=== PATIENT | male | born 1950 | race African-American/Black ===

== ENCOUNTER 2016-05-14 09:47 | Inpatient (IN) | payer MEDICARE, MEDICAID ==
[~2016-05-14] VITALS: Ht 182.9 cm; Wt 74.8 kg
[~2016-05-14 09:47] MED LIST: NKM
[2016-05-14 10:00] VITALS: BP 131/78
[2016-05-14] MEDS ORDERED: Loperamide 2mg cap ORAL ONE (10:00)
[2016-05-14] MEDS ORDERED: Mylanta II UD 30ml ORAL ONE (10:00)
[2016-05-14 10:12] LABS: BASOPHILS % (AUTO) 0.2 % (0.0-2.0); EOSINOPHILS % (AUTO) 0.1 % (0.0-3.0); LYMPHOCYTES % (AUTO) 9.7 % (20.0-45.0); MEAN CORPUSCULAR HEMOGLOBIN 30.3 PG (27.0-31.0); MEAN CORPUSCULAR HGB CONC 32.7 G/DL (32.0-36.0); MEAN CORPUSCULAR VOLUME 93 FL (80-99); MEAN PLATELET VOLUME 5.4 FL (6.5-10.1); MONOCYTES % (AUTO) 7.4 % (1.0-10.0); NEUTROPHILS % (AUTO) 82.7 % (45.0-75.0); PLATELET COUNT 340 K/UL (150-450); RED BLOOD COUNT 3.59 M/UL (4.70-6.10); RED CELL DISTRIBUTION WIDTH 12.8 % (11.6-14.8); WHITE BLOOD COUNT 11.5 K/UL (4.8-10.8)
--- NOTE | 2016-05-14 10:16 | Emergency Room Report ---
History of Present Illness General Chief Complaint: Abdominal Pain Source: Patient, Medical Record, EMS Present Illness HPI Patient is a 65-year-old male brought in by ambulance after increased left lower quadrant pain. Patient reported having increased diarrhea for the past 2 weeks. Patient prior history of gastric bypass surgery. Patient had been seen one day ago at [facility] [place]. He reported having some episodes of vomiting. He denied hematemesis or bloody stool. The diarrhea described as watery nature associated with some abdominal cramping.Patient had prior history of hypertension as well as diabetes.Patient states he is normally followed at [facility] Allergies: Coded Allergies: No Known Allergies (Unverified , 05/14/16) Patient History Past Medical History: see triage record Reviewed Nursing Documentation: PMH: Agreed, PSxH: Agreed Review of Systems All Other Systems: negative except mentioned in HPI Physical Exam Vital Signs Date Time Temp Pulse Resp B/P Pulse Ox O2 Delivery O2 Flow Rate FiO2 05/14/16 09:40 97.5 76 16 122/79 96 Room Air General Appearance: alert, GCS 15, non-toxic, thin, Chronically Ill Head: normocephalic Eyes: bilateral eye PERRL ENT: normal pharynx Neck: full range of motion, supple Respiratory: lungs clear, normal breath sounds, no rhonchi Cardiovascular #1: normal peripheral pulses, regular rate, rhythm, no edema Gastrointestinal: normal bowel sounds, non tender, soft, no mass Musculoskeletal: back normal, digits/nails normal, other - deformity to right ankle and left ankle chronic per patient Neurologic: alert, oriented x3, responsive, 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 Differential diagnoses included ischemic bowel, appendicitis, perforated viscus, abdominal aortic aneurysm, inferior myocardial infarction, viral gastroenteritis Because of complexity of patient's case laboratory testing and imaging studies were ordered. 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 Patient was noted to have evidence of hypokalemia on laboratory testing. EKG interpreted by me showed normal sinus rhythm with a first-degree AV block rate of 67 with occasional PVCs there were no acute ST or T wave changes noted the QT was prolonged at 486. The patient was given IV pain medications and IV fluids he was given oral potassium. The patient also had an elevated lipase consistent with pancreatitis. The patient's old records from [facility] were reviewed and patient was noted to have prior history of substance abuse as well as alcohol abuse. The patient will be admitted to the hospital due to his comorbidities. Dr. Saeed was contacted for inpatient management. Labs Test 05/14/16 09:50 White Blood Count 11.5 K/UL (4.8-10.8) Red Blood Count 3.59 M/UL (4.70-6.10) Hemoglobin 10.9 G/DL (14.2-18.0) Hematocrit 33.3 % (42.0-52.0) Mean Corpuscular Volume 93 FL (80-99) Mean Corpuscular Hemoglobin 30.3 PG (27.0-31.0) Mean Corpuscular Hemoglobin Concent 32.7 G/DL (32.0-36.0) Red Cell Distribution Width 12.8 % (11.6-14.8) Platelet Count 340 K/UL (150-450) Mean Platelet Volume 5.4 FL (6.5-10.1) Neutrophils (%) (Auto) 82.7 % (45.0-75.0) Lymphocytes (%) (Auto) 9.7 % (20.0-45.0) Monocytes (%) (Auto) 7.4 % (1.0-10.0) Eosinophils (%) (Auto) 0.1 % (0.0-3.0) Basophils (%) (Auto) 0.2 % (0.0-2.0) Sodium Level 139 mEQ/L (135-145) Potassium Level 2.8 mEQ/L (3.4-4.9) Chloride Level 99 mEQ/L (98-107) Carbon Dioxide Level 23 mEQ/L (20-30) Anion Gap 17 (5-15) Blood Urea Nitrogen 10 mg/dL (7-23) Creatinine 1.0 mg/dL (0.7-1.2) Estimat Glomerular Filtration Rate > 60 mL/min (>60) Glucose Level 79 mg/dL (74-106) Calcium Level 8.9 mg/dL (8.6-10.2) Total Bilirubin 0.3 mg/dL (0.0-1.2) Aspartate Amino Transf (AST/SGOT) 33 U/L (5-40) Alanine Aminotransferase (ALT/SGPT) 14 U/L (3-41) Alkaline Phosphatase 86 U/L (40-129) Troponin I < 0.30 ng/mL (<=0.30) Total Protein 8.0 g/dL (6.6-8.7) Albumin 3.4 g/dL (3.5-5.2) Globulin 4.6 g/dL Albumin/Globulin Ratio 0.7 (1.0-2.7) Lipase 313 U/L (< 60) Rhythm Strip Diag. Results EP Interpretation: yes Rhythm: NSR, no ectopy, other - occasional pvc Last Vital Signs Date Time Temp Pulse Resp B/P Pulse Ox O2 Delivery O2 Flow Rate FiO2 05/14/16 09:40 97.5 76 16 122/79 96 Room Air Status: unchanged Disposition: ADMITTED INPATIENT Condition: Serious Isiah Browning May 14, 2016 10:16
[2016-05-14] MEDS ORDERED: Tubing IV Cassette IV ONE (10:24)
[2016-05-14 10:25] LABS: TROPONIN I < 0.30 ng/mL (<=0.30)
[2016-05-14 10:28] LABS: ALANINE AMINOTRANSFERASE 14 U/L (3-41); ALBUMIN/GLOBULIN RATIO 0.7 (1.0-2.7); ASPARTATE AMINO TRANSFERASE 33 U/L (5-40); CALCIUM 8.9 mg/dL (8.6-10.2); CARBON DIOXIDE 23 mEQ/L (20-30); CHLORIDE 99 mEQ/L (98-107); GLOMERULAR FILTRATION RATE > 60 mL/min (>60); HEMOLYSIS 1; SODIUM 139 mEQ/L (135-145)
[2016-05-14 10:33] LABS: ANION GAP 17 (5-15)
[2016-05-14 10:34] LABS: LIPASE 313 U/L (< 60); POTASSIUM 2.8 mEQ/L (3.4-4.9)
[2016-05-14 12:00] VITALS: BP 120/79
[2016-05-14] MEDS ORDERED: Morphine Sulfate 4mg/ml Inj IVP ONE (12:15)
[2016-05-14 12:56] VITALS: BP 132/84
[2016-05-14] MEDS ORDERED: Thiamine 100mg tab ORAL ONE (13:30)
[2016-05-14 14:29] LABS: APPEARANCE,URINE CLEAR; KETONES,URINE NEGATIVE (NEGATIVE); LEUKOCYTE ESTERASE ,URINE 1+ (NEGATIVE); NITRITE,URINE NEGATIVE (NEGATIVE); PH,URINE 6 (4.5-8.0); PROTEIN,URINE 2+ (NEGATIVE); UROBILINOGEN,URINE NORMAL MG/DL (0.0-1.0)
[2016-05-14 14:38] LABS: BACTERIA,URINE FEW /HPF; SQUAMOUS EPITHELIAL CELL,UR OCCASIONAL /LPF (NONE/OCC)
[2016-05-14 14:45] VITALS: BP 119/87
[2016-05-14 16:00] VITALS: BP 113/83
[2016-05-14 20:00] VITALS: BP 118/69
[2016-05-14] MEDS: Heparin 5000 units/ml inj SUBQ SCH (20:19)
[2016-05-14] MEDS: Morphine Sulfate 2mg/ml Inj IV PRN (20:28)
--- NOTE | 2016-05-14 21:44 | Consultation ---
Consult Note Consult Note ID [id number] Assessment/Plan A: Pancreatitis Low grade fever Diarrhea x 2 wk Ehhoh abuse Depression LBP P: Start pt on IV Merrem and oral Flagyl Monitor CBC Monitor BMP Monitor Amyl and Lipase Monitor Cultures ( Bl, Stool ) Stool Cryptos, Fat, WBC, C Diff CT of Abd HIV MONTRELL CORREA M.D. May 14, 2016 21:44
[2016-05-14] MEDS: metroNIDAZOLE 500mg tab ORAL SCH (22:26)
[2016-05-15] VITALS: BP 113/68
[2016-05-15] MEDS ORDERED: Meropenem 1gm vial ONE (00:10)
--- NOTE | 2016-05-15 00:47 | Consultation ---
DATE OF CONSULTATION: 05/14/2016 GASTROENTEROLOGY CONSULTATION CHIEF COMPLAINT: Upper abdominal pain. HISTORY OF PRESENT ILLNESS: This is a 65-year-old male with past medical history of alcoholism, who presented to the hospital complaining of epigastric abdominal pain with diarrhea for about nine days. The patient is a heavy drinker. He drinks beer and whiskey everyday. PAST MEDICAL HISTORY: 1. History of gastric bypass surgery by over 20 years ago. 2. History of chronic back pain, on back surgery. 3. Alcoholism. PAST SURGICAL HISTORY: History of gastric bypass and also history of back surgeries. MEDICATIONS: Please medication reconciliation list. ALLERGIES: No known drug allergy. SOCIAL HISTORY: He smoked half-a-pack of cigarettes for many years. He also smokes marijuana. Drinks alcohol as above. No cocaine use or other drugs. FAMILY HISTORY: Noncontributory. REVIEW OF SYSTEMS: A 10-point review of systems was performed and pertinent positives in history of present illness. PHYSICAL EXAMINATION: GENERAL: A well-developed male in no acute distress. VITAL SIGNS: Temperature 97.5 degrees, pulse is 72, respirations 18, and blood pressure 120/79. HEENT: Normocephalic and atraumatic. Sclerae anicteric. NECK: Supple. No evidence of lymphadenopathy. CARDIOVASCULAR: Regular rhythm. Plus S1 and S2. No obvious murmur. LUNGS: Clear breath sounds bilaterally. ABDOMEN: Positive bowel sounds. Soft. There is tenderness to palpation in the epigastric area. No rebound. No guarding. No peritoneal sign. EXTREMITIES: No cyanosis. No clubbing. No edema. LABORATORY DATA: White count 11.5, hemoglobin 10.9, hematocrit 33, and platelet count of 340,000. Sodium 139 and potassium 2.8. Liver function grossly normal. Lipase is elevated at 313. ASSESSMENT: This is a 65-year-old male with most probably alcoholic pancreatitis and diarrhea. PLAN: IV fluids for hydration. Pain control. Start the patient on thiamine, folate, and multivitamin for alcoholism. Repeat amylase and lipase tomorrow. The patient is very hungry and he does not have a significantly elevated white count and no significant tachycardia and no hemo concentration, so we are going to start him on clear liquid diet. We are going to order an abdominal ultrasound, rule out gallstone. The patient was educated about the consequence of drinking every day and possibility of chronic pancreatitis and even liver disease and he was encouraged to stop. The patient also has normocytic anemia. Plan to do an anemia workup including stool for occult blood, iron panel, and CEA. The patient never had any endoscopy and colonoscopy, so at one point he will need to be scoped. We will wait until his pancreatitis improved. I want to thank, Dr. Saeed, for this kind referral. Tavo Young M.D. DR: RAMOS JOB#: [id number] CC: Afshin Saeed M.D.
--- NOTE | 2016-05-15 02:38 | Consultation ---
DATE OF CONSULTATION: REASON FOR EVALUATION: Diarrhea, pancreatitis, and management. HISTORY OF PRESENT ILLNESS: The patient is a 65-year-old old male who came to the hospital because of abdominal pain. The patient has history of diarrhea x2 weeks. The patient admits drinking alcohol in excess. The patient . Also the patient is a smoker. At time of admission, the patient was found to have low-grade fever and mild leukocytosis and increased lipase. The patient has been admitted here for further evaluation. Infectious Disease consultation has been requested regarding for evaluation of the need for antibiotic treatment. PAST MEDICAL HISTORY: 1. History of hypertension. 2. History of gastric bypass. 3. History of back surgery. 4. Diabetes. 5. Depression. 6. Alcohol abuse. 7. History of marijuana abuse. 8. The patient is a smoker. FAMILY HISTORY: Noncontributory. SOCIAL HISTORY: As mentioned above. ALLERGIES: No known drug allergies. MEDICATIONS: Currently off of antibiotics. PHYSICAL EXAMINATION: VITAL SIGNS: Temperature 100, blood pressure 118/59, pulse 68, and respiratory rate 18. HEENT: Mild pale conjunctivae. No icterus. CHEST: Coarse breathing sounds. HEART: S1-S2. ABDOMEN: Soft. The patient has epigastric tenderness. EXTREMITIES: No cyanosis. NEUROLOGIC: Awake and alert. LABORATORY DATA: White count 11, hemoglobin 10.9, and platelets 340,000. UA unremarkable. BUN 10 and creatinine 1. ALT is unremarkable at 86. ASSESSMENT: The patient is a 65-year-old male, who came to the hospital. The patient has history of chronic diarrhea x2 weeks. It is important to rule out infectious etiologies. Also this could be due to chronic pancreatitis and mal absorption. The patient appears to be due to pancreatitis. The patient has history of alcohol abuse. Low-grade fever also could be due to the patient's pancreatitis. The patient would benefit from broad-spectrum antibiotics for pancreatitis and also further information from cultures and further lab workup. PLAN: 1. We will start the patient on meropenem and Flagyl. 2. Monitor CBC. 3. Monitor BMP. 4. Monitor lipase and amylase. 5. Monitor cultures (blood and stool). 6. Stool for white blood cells, C. diff, and fat. 7. CT scan of the abdomen for evaluation of the patient's pancreatitis. 8. The patient further recommendation. Thank you, Dr. Saeed this patient. I will follow the patient with you. Alvino Thompson M.D. DR: Nilton JOB#: [id number] CC:
[2016-05-15 04:00] VITALS: BP 101/54
[2016-05-15 05:52] LABS: BASOPHILS % (AUTO) 0.6 % (0.0-2.0); EOSINOPHILS % (AUTO) 0.3 % (0.0-3.0); LYMPHOCYTES % (AUTO) 21.4 % (20.0-45.0); MEAN CORPUSCULAR HGB CONC 31.9 G/DL (32.0-36.0); MEAN CORPUSCULAR VOLUME 94 FL (80-99); MEAN PLATELET VOLUME 5.2 FL (6.5-10.1); MONOCYTES % (AUTO) 7.6 % (1.0-10.0); NEUTROPHILS % (AUTO) 70.1 % (45.0-75.0); PLATELET COUNT 298 K/UL (150-450); RED BLOOD COUNT 3.21 M/UL (4.70-6.10); RED CELL DISTRIBUTION WIDTH 12.4 % (11.6-14.8)
[2016-05-15] MEDS: metroNIDAZOLE 500mg tab ORAL SCH ×3 (06:10→21:51)
[2016-05-15 06:39] LABS: ALANINE AMINOTRANSFERASE 9 U/L (3-41); ALBUMIN/GLOBULIN RATIO 0.5 (1.0-2.7); AMYLASE 128 U/L (10-110); ANION GAP 14 (5-15); ASPARTATE AMINO TRANSFERASE 29 U/L (5-40); CALCIUM 8.1 mg/dL (8.6-10.2); CARBON DIOXIDE 22 mEQ/L (20-30); CHLORIDE 101 mEQ/L (98-107); CREATININE 0.8 mg/dL (0.7-1.2); GLOMERULAR FILTRATION RATE > 60 mL/min (>60); LIPASE 72 U/L (< 60); POTASSIUM 3.5 mEQ/L (3.4-4.9); SODIUM 137 mEQ/L (135-145); TOTAL PROTEIN 6.6 g/dL (6.6-8.7)
[2016-05-15 07:07] LABS: CHOLESTEROL/HDL RATIO 2.2 (3.3-4.4)
[2016-05-15 07:21] LABS: THYROID STIMULATING HORMONE 1.03 uIU/mL (0.300-4.500)
[2016-05-15 07:39] LABS: HEMOLYSIS 109; IRON 45 ug/dL (59-158); TOTAL IRON BINDING CAPACITY 206 ug/dL (250-400)
[2016-05-15 07:52] LABS: HEMOGLOBIN A1C 5.8 % (< 6.0)
[2016-05-15 08:00] VITALS: BP 119/58
[2016-05-15] MEDS: Heparin 5000 units/ml inj SUBQ SCH ×2 (09:23→22:01)
--- NOTE | 2016-05-15 10:02 | History & Physical ---
History and Physical History & Physicial patient is seen and examined. Dictation completed Afshin Saeed MD May 15, 2016 10:02
--- NOTE | 2016-05-15 10:05 | General Progress Note ---
Assessment/Plan Status: stable Assessment/Plan 1- Sepsis 2- Acute pancreatitis 3- PSA 4- Imbalance 5- GIB 6- GI-DVT prophylaxia Plan: GI- ID services are consulted. Agree with current management Subjective ROS Limited/Unobtainable: No Constitutional: Reports: no symptoms HEENT: Reports: no symptoms Cardiovascular: Reports: no symptoms Respiratory: Reports: no symptoms Allergies: Coded Allergies: No Known Allergies (Unverified , 05/14/16) Objective Last 24 Hour Vital Signs Date Time Temp Pulse Resp B/P Pulse Ox O2 Delivery O2 Flow Rate FiO2 05/15/16 08:00 97.0 54 18 119/58 100 Room Air 05/15/16 04:00 69 05/15/16 04:00 97.9 59 18 101/54 100 Room Air 05/15/16 00:00 98.4 60 18 113/68 98 Room Air 05/15/16 00:00 59 05/14/16 20:00 68 05/14/16 20:00 100.0 69 14 118/69 99 Room Air 05/14/16 16:00 73 05/14/16 16:00 96.3 67 13 113/83 100 Room Air 05/14/16 14:45 97.7 80 20 119/87 99 Room Air 05/14/16 13:50 97.6 77 17 132/84 100 Room Air 05/14/16 13:15 97.6 05/14/16 12:56 77 17 132/84 100 Room Air 05/14/16 12:00 72 18 120/79 100 Room Air Intake and Output 05/14/16 05/15/16 19:00 07:00 Intake Total 600 ml 340 ml Output Total 500 ml 300 ml Balance 100 ml 40 ml Intake Oral 240 ml IV Total 600 ml 100 ml Output Urine Total 300 ml Stool Total 500 ml # Voids 2 Laboratory Tests 05/14/16 10:15: Stool Occult Blood Positive 05/14/16 14:00: Urine Color Pale yellow, Urine Appearance Clear, Urine pH 6, Urine Specific Thomson 1.010, Urine Protein 2+H, Urine Glucose (UA) Negative, Urine Ketones Negative, Urine Occult Blood 2+H, Urine Nitrite Negative, Urine Bilirubin Negative, Urine Urobilinogen Normal, Urine Leukocyte Esterase 1+H, Urine RBC 2- 4H, Urine WBC 2-4, Urine Squamous Epithelial Cells Occasional, Urine Bacteria Few, Urine Opiates Screen PositiveH, Urine Barbiturates Screen Negative, Phencyclidine (PCP) Screen Negative, Urine Amphetamines Screen Negative, Urine Benzodiazepines Screen Negative, Urine Cocaine Screen PositiveH, Urine Marijuana (THC) Screen Negative 05/15/16 03:25: White Blood Count 8.0, Red Blood Count 3.21L, Hemoglobin 9.7L, Hematocrit 30.3L , Mean Corpuscular Volume 94, Mean Corpuscular Hemoglobin 30.0, Mean Corpuscular Hemoglobin Concent 31.9L, Red Cell Distribution Width 12.4, Platelet Count 298, Mean Platelet Volume 5.2L, Neutrophils (%) (Auto) 70.1, Lymphocytes (%) (Auto) 21.4, Monocytes (%) (Auto) 7.6, Eosinophils (%) (Auto) 0.3, Basophils (%) (Auto) 0.6, Sodium Level 137, Potassium Level 3.5, Chloride Level 101, Carbon Dioxide Level 22, Anion Gap 14, Blood Urea Nitrogen 6L, Creatinine 0.8, Estimat Glomerular Filtration Rate > 60, Glucose Level 68L, Hemoglobin A1c 5.8, Calcium Level 8.1L, Iron Level 45L, Total Iron Binding Capacity 206L, Percent Iron Saturation 22, Unsaturated Iron Binding 161, Total Bilirubin 0.3, Aspartate Amino Transf (AST/SGOT) 29, Alanine Aminotransferase ( ALT/SGPT) 9, Alkaline Phosphatase 86, Total Protein 6.6, Albumin 2.4L, Globulin 4.2, Albumin/Globulin Ratio 0.5L, Triglycerides Level 55, Cholesterol Level 83, LDL Cholesterol 34L, HDL Cholesterol 38, Cholesterol/HDL Ratio 2.2L, Amylase Level 128H, Lipase 72H, Carcinoembryonic Antigen 4.8H, Thyroid Stimulating Hormone (TSH) 1.030 Height (Feet): 6 Height (Inches): 1.00 Weight (Pounds): 165 General Appearance: no apparent distress EENT: PERRL/EOMI Neck: supple Cardiovascular: normal rate Respiratory/Chest: lungs clear Abdomen: guarding Extremities: non-tender Neurologic: patient services representative II-XII grossly normal Afshin Saeed MD May 15, 2016 10:05
--- NOTE | 2016-05-15 10:19 | Diagnostic Imaging Report ---
Indication:Abdominal pain Technique: Grayscale and duplex Doppler imaging of the abdomen performed. Comparison: None Findings: The liver, demonstrated part of the pancreas, gallbladder, aorta and IVC, both kidneys appear unremarkable. Spleen is not all seen. Portions of anatomy are not well seen. There is no biliary ductal dilatation identified. Doppler evaluation of the main portal vein shows patency. There is no ascites. No hydronephrosis seen. Impression: No acute findings. Limited evaluation.
[2016-05-15 12:00] VITALS: BP 106/67
--- NOTE | 2016-05-15 13:44 | Infectious Diseases Prog Note ---
Assessment/Plan Assessment/Plan ASSESSMENT: 65 y/o male with: Acute pancreatitis, m/l EtOH - improved, tolerating CLD US: No acute findings. Limited evaluation. Diarrhea x 2 wk - resolved, no BM x2d SIRS SP Leukocytosis - resolved Low grade fever x1 - resolved EtOH abuse Negative HIV NKDA Full Code PLAN: continue IV Merrem, PO Flagyl d# 2 for now. Will not rq ABX at discharge f/u cultures, stool studies f/u CT A/P Monitor CBC, temperatures Monitor BMP EtOH cessation advance diet as tolerated Subjective Allergies: Coded Allergies: No Known Allergies (Unverified , 05/14/16) Subjective no more fevers tolerating CLD, denies abdominal pain, N/V, diarrhea Objective Vital Signs Last 24 Hour Vital Signs Date Time Temp Pulse Resp B/P Pulse Ox O2 Delivery O2 Flow Rate FiO2 05/15/16 12:00 97.3 58 18 106/67 98 Room Air 05/15/16 08:00 60 05/15/16 08:00 97.0 54 18 119/58 100 Room Air 05/15/16 04:00 69 05/15/16 04:00 97.9 59 18 101/54 100 Room Air 05/15/16 00:00 98.4 60 18 113/68 98 Room Air 05/15/16 00:00 59 05/14/16 20:00 68 05/14/16 20:00 100.0 69 14 118/69 99 Room Air 05/14/16 16:00 73 05/14/16 16:00 96.3 67 13 113/83 100 Room Air 05/14/16 14:45 97.7 80 20 119/87 99 Room Air 05/14/16 13:50 97.6 77 17 132/84 100 Room Air Height (Feet): 6 Height (Inches): 1.00 Weight (Pounds): 165 General Appearance: no acute distress Respiratory/Chest: no respiratory distress Cardiovascular: normal rate, regular rhythm Abdomen: normal bowel sounds, soft, non tender, non distended Laboratory Tests Test 05/14/16 14:00 05/15/16 03:25 Urine Color Pale yellow Urine Appearance Clear Urine pH 6 (4.5-8.0) Urine Specific Accord 1.010 (1.005-1.035) Urine Protein 2+ (NEGATIVE) H Urine Glucose (UA) Negative (NEGATIVE) Urine Ketones Negative (NEGATIVE) Urine Occult Blood 2+ (NEGATIVE) H Urine Nitrite Negative (NEGATIVE) Urine Bilirubin Negative (NEGATIVE) Urine Urobilinogen Normal MG/DL (0.0-1.0) Urine Leukocyte Esterase 1+ (NEGATIVE) H Urine RBC 2-4 /HPF (0 - 0) H Urine WBC 2-4 /HPF (0 - 0) Urine Squamous Epithelial Cells Occasional /LPF Urine Bacteria Few /HPF (NONE) Urine Opiates Screen Positive (NEGATIVE) H Urine Barbiturates Screen Negative (NEGATIVE) Phencyclidine (PCP) Screen Negative (NEGATIVE) Urine Amphetamines Screen Negative (NEGATIVE) Urine Benzodiazepines Screen Negative (NEGATIVE) Urine Cocaine Screen Positive (NEGATIVE) H Urine Marijuana (THC) Screen Negative (NEGATIVE) White Blood Count 8.0 K/UL (4.8-10.8) Red Blood Count 3.21 M/UL (4.70-6.10) L Hemoglobin 9.7 G/DL (14.2-18.0) L Hematocrit 30.3 % (42.0-52.0) L Mean Corpuscular Volume 94 FL (80-99) Mean Corpuscular Hemoglobin 30.0 PG (27.0-31.0) Mean Corpuscular Hemoglobin Concent 31.9 G/DL (32.0-36.0) L Red Cell Distribution Width 12.4 % (11.6-14.8) Platelet Count 298 K/UL (150-450) Mean Platelet Volume 5.2 FL (6.5-10.1) L Neutrophils (%) (Auto) 70.1 % (45.0-75.0) Lymphocytes (%) (Auto) 21.4 % (20.0-45.0) Monocytes (%) (Auto) 7.6 % (1.0-10.0) Eosinophils (%) (Auto) 0.3 % (0.0-3.0) Basophils (%) (Auto) 0.6 % (0.0-2.0) Sodium Level 137 mEQ/L (135-145) Potassium Level 3.5 mEQ/L (3.4-4.9) Chloride Level 101 mEQ/L (98-107) Carbon Dioxide Level 22 mEQ/L (20-30) Anion Gap 14 (5-15) Blood Urea Nitrogen 6 mg/dL (7-23) L Creatinine 0.8 mg/dL (0.7-1.2) Estimat Glomerular Filtration Rate > 60 mL/min (>60) Glucose Level 68 mg/dL (74-106) L Hemoglobin A1c 5.8 % (< 6.0) Calcium Level 8.1 mg/dL (8.6-10.2) L Iron Level 45 ug/dL (59-158) L Total Iron Binding Capacity 206 ug/dL (250-400) L Percent Iron Saturation 22 % (15-50) Unsaturated Iron Binding 161 ug/dL (112-346) Total Bilirubin 0.3 mg/dL (0.0-1.2) Aspartate Amino Transf (AST/SGOT) 29 U/L (5-40) Alanine Aminotransferase (ALT/SGPT) 9 U/L (3-41) Alkaline Phosphatase 86 U/L (40-129) Total Protein 6.6 g/dL (6.6-8.7) Albumin 2.4 g/dL (3.5-5.2) L Globulin 4.2 g/dL Albumin/Globulin Ratio 0.5 (1.0-2.7) L Triglycerides Level 55 mg/dL (< 150) Cholesterol Level 83 mg/dL (< 200) LDL Cholesterol 34 mg/dL (60-99) L HDL Cholesterol 38 mg/dL (> 60) Cholesterol/HDL Ratio 2.2 (3.3-4.4) L Amylase Level 128 U/L (10-110) H Lipase 72 U/L (< 60) H Carcinoembryonic Antigen 4.8 ng/mL H Thyroid Stimulating Hormone (TSH) 1.030 uIU/mL (0.300-4.500) Current Medications Medications (Trade) Dose Ordered Sig/Ru Route PRN Reason Start Time Stop Time Status Last Admin Dose Admin Acetaminophen (Tylenol) 650 mg EVERY 8 HOURS PRN ORAL Mild Pain/Temp > 100.5 05/14/16 18:00 06/13/16 17:59 Heparin Sodium (Porcine) (Heparin 5000 units/ml) 5,000 units EVERY 12 HOURS SUBQ 05/14/16 21:00 06/13/16 20:59 05/15/16 09:23 Meropenem/Sodium Chloride (Merrem/Sodium Chloride 100ml bag) 100 ml @ 200 mls/hr Q8H IVPB 05/15/16 09:00 05/20/16 08:59 05/15/16 09:20 Metronidazole 500 mg 500 mg Q8HR ORAL 05/14/16 22:00 05/21/16 21:59 05/15/16 13:27 Morphine Sulfate (Morphine Sulfate) 2 mg EVERY 8 HOURS PRN IV Severe Pain (Pain Scale 7-10) 05/14/16 18:00 05/21/16 17:59 05/14/16 20:28 Ranitidine HCl (Zantac) 150 mg TWICE A DAY ORAL 05/14/16 18:00 06/13/16 17:59 05/15/16 09:20 JUSTIN STEWART May 15, 2016 13:44
--- NOTE | 2016-05-15 15:26 | Diagnostic Imaging Report ---
Indication: Abdominal pain Technique: Continuous helical transaxial imaging of the abdomen and pelvis was obtained from the lung bases to the pubic symphysis during intravenous contrast administration. Coronal 2-D reformats were also obtained. Study obtained in a Siemens sensation [address] Total Dose length Product (DLP): [address] Dose Index Volume (CTDIvol): 8, 146, 15, 18 mGy Comparison: None Findings: There is an ill-defined infiltrate at the left lung base partially seen on this examination. Trace left pleural fluid also noted. Hiatal hernia is present. There is extensive amount of streak artifact in the upper abdomen secondary to surgical clips are seen in and around the upper part of the abdomen. It appears the patient has had at least subtotal or total gastrectomy. Oral contrast was given and appears to opacify a loop of jejunum in the epigastric region as well as several small bowel loops throughout the abdomen and pelvis. Of there is trace ascites. There is no evidence of bowel obstruction. Moderate stool noted within the colon. There is a mesh in the anterior abdominal wall. The bladder is slightly distended. There is no hydronephrosis. No gross abnormalities of the assessable regions of the spleen and liver identified. The pancreas is poorly seen but grossly unremarkable. Gallbladder is unremarkable. There is a probable cyst in the upper pole the left kidney. The patient is had multilevel lumbar laminectomies. Fusion hardware noted posteriorly at L2-3 with pedicle screws and fusion rods. There is narrowing of intervertebral discs and accompanying endplate osteophyte formation. Hypertrophied facet joints also demonstrated.. Generalized osteopenia noted. Anterolateral to the left hip there is a 11 x 6 x 1.6 CM thickwalled fluid collection residing in the expected location of the tensor fossa while muscle which is not present on the left side. This muscle may of been torn previously and the collection is the sequela of long-standing injury. Please correlate clinically. Impression: Apparent gastrectomy. Surgical clips significantly obscure visualization of the upper abdomen. As visualized, no obvious abscess, free air or evidence of small bowel obstruction. Ill-defined infiltrate left lung base incompletely seen on this study. Correlate for pneumonia. Hiatal hernia Multilevel lumbar laminectomy and fusion. Status post abdominal plasty involving anterior abdominal wall. Probable left renal cyst 11 x 6 x 1.6 cm superficial thickwalled fluid collection over the left lateral hip. Please correlate clinically. This is probably a posttraumatic finding of a tear or rupture of the tensor fascia zayra muscle. The CT scanner at [facility] is accredited by the [employer] and the scans are performed using protocols designed to limit radiation exposure to as low as reasonably achievable to attain images of sufficient resolution adequate for diagnostic evaluation.
[2016-05-15 16:07] VITALS: BP 128/68
[2016-05-15] MEDS ORDERED: Tubing IV Secondary IV ONE (16:25)
[2016-05-15] MEDS ORDERED: NS 275ml ONE (16:25)
--- NOTE | 2016-05-15 16:44 | GI Progress Note ---
Assessment/Plan Problems: (1) Cocaine abuse ICD Codes: F14.10 - Cocaine abuse, uncomplicated SNOMED: 26788851, 717725574 (2) Occult blood positive stool ICD Codes: R19.5 - Other fecal abnormalities SNOMED: 39663288, 054304180 (3) Hypoalbuminemia ICD Codes: E88.09 - Other disorders of plasma-protein metabolism, not elsewhere classified SNOMED: 788779043 (4) Pancreatitis ICD Codes: K85.90 - Acute pancreatitis without necrosis or infection, unspecified SNOMED: 23180725 (5) Hiatal hernia ICD Codes: K44.9 - Diaphragmatic hernia without obstruction or gangrene SNOMED: 03561223 (6) Elevated CEA ICD Codes: R97.0 - Elevated carcinoembryonic antigen [CEA] SNOMED: 29303869, 142928875 (7) Pancreatitis, acute ICD Codes: K85.90 - Acute pancreatitis without necrosis or infection, unspecified SNOMED: 040563011 (8) Diarrhea ICD Codes: R19.7 - Diarrhea, unspecified SNOMED: 61556747 Status: stable, progressing Status Narrative Discussed with Dr. Young. Assessment/Plan adv to regular diet acute pancreatitis >> utox positive for cocaine use elevated lipase >> downtrending OB stool positive >> monitor H&H, transfuse prn per patient had colonoscopy few years prior with unremarkable results elevated CEA >> 4.[address] reviewed. H2 fu labs Subjective Gastrointestinal/Abdominal: Reports: no symptoms Subjective pt states he feels alot better. denies any symptoms at this moment c/o of hunger denies any ETOH use Objective Last 24 Hour Vital Signs Date Time Temp Pulse Resp B/P Pulse Ox O2 Delivery O2 Flow Rate FiO2 05/15/16 16:07 96.6 59 24 128/68 98 Room Air 05/15/16 12:00 54 05/15/16 12:00 97.3 58 18 106/67 98 Room Air 05/15/16 08:00 60 05/15/16 08:00 97.0 54 18 119/58 100 Room Air 05/15/16 04:00 69 05/15/16 04:00 97.9 59 18 101/54 100 Room Air 05/15/16 00:00 98.4 60 18 113/68 98 Room Air 05/15/16 00:00 59 05/14/16 20:00 68 05/14/16 20:00 100.0 69 14 118/69 99 Room Air Intake and Output 05/14/16 05/15/16 19:00 07:00 Intake Total 600 ml 340 ml Output Total 500 ml 300 ml Balance 100 ml 40 ml Intake Oral 240 ml IV Total 600 ml 100 ml Output Urine Total 300 ml Stool Total 500 ml # Voids 2 Laboratory Tests Test 05/15/16 03:25 White Blood Count 8.0 K/UL (4.8-10.8) Red Blood Count 3.21 M/UL (4.70-6.10) L Hemoglobin 9.7 G/DL (14.2-18.0) L Hematocrit 30.3 % (42.0-52.0) L Mean Corpuscular Volume 94 FL (80-99) Mean Corpuscular Hemoglobin 30.0 PG (27.0-31.0) Mean Corpuscular Hemoglobin Concent 31.9 G/DL (32.0-36.0) L Red Cell Distribution Width 12.4 % (11.6-14.8) Platelet Count 298 K/UL (150-450) Mean Platelet Volume 5.2 FL (6.5-10.1) L Neutrophils (%) (Auto) 70.1 % (45.0-75.0) Lymphocytes (%) (Auto) 21.4 % (20.0-45.0) Monocytes (%) (Auto) 7.6 % (1.0-10.0) Eosinophils (%) (Auto) 0.3 % (0.0-3.0) Basophils (%) (Auto) 0.6 % (0.0-2.0) Sodium Level 137 mEQ/L (135-145) Potassium Level 3.5 mEQ/L (3.4-4.9) Chloride Level 101 mEQ/L (98-107) Carbon Dioxide Level 22 mEQ/L (20-30) Anion Gap 14 (5-15) Blood Urea Nitrogen 6 mg/dL (7-23) L Creatinine 0.8 mg/dL (0.7-1.2) Estimat Glomerular Filtration Rate > 60 mL/min (>60) Glucose Level 68 mg/dL (74-106) L Hemoglobin A1c 5.8 % (< 6.0) Calcium Level 8.1 mg/dL (8.6-10.2) L Iron Level 45 ug/dL (59-158) L Total Iron Binding Capacity 206 ug/dL (250-400) L Percent Iron Saturation 22 % (15-50) Unsaturated Iron Binding 161 ug/dL (112-346) Total Bilirubin 0.3 mg/dL (0.0-1.2) Aspartate Amino Transf (AST/SGOT) 29 U/L (5-40) Alanine Aminotransferase (ALT/SGPT) 9 U/L (3-41) Alkaline Phosphatase 86 U/L (40-129) Total Protein 6.6 g/dL (6.6-8.7) Albumin 2.4 g/dL (3.5-5.2) L Globulin 4.2 g/dL Albumin/Globulin Ratio 0.5 (1.0-2.7) L Triglycerides Level 55 mg/dL (< 150) Cholesterol Level 83 mg/dL (< 200) LDL Cholesterol 34 mg/dL (60-99) L HDL Cholesterol 38 mg/dL (> 60) Cholesterol/HDL Ratio 2.2 (3.3-4.4) L Amylase Level 128 U/L (10-110) H Lipase 72 U/L (< 60) H Carcinoembryonic Antigen 4.8 ng/mL H Thyroid Stimulating Hormone (TSH) 1.030 uIU/mL (0.300-4.500) Height (Feet): 6 Height (Inches): 1.00 Weight (Pounds): 165 General Appearance: no apparent distress, alert, thin Cardiovascular: normal rate Respiratory/Chest: normal breath sounds, no respiratory distress Abdominal Exam: normal bowel sounds, non tender, soft Genitourinary/Rectal: other - OB stool positive Sabrina Roy N.Stacey May 15, 2016 16:44
[2016-05-15 20:00] VITALS: BP 130/65
--- NOTE | 2016-05-15 21:28 | History and Physical Report ---
DATE OF ADMISSION: 05/14/2016 HISTORY OF PRESENT ILLNESS: The patient is a 65-year-old male with a history of alcohol consumption, who presented with the lightheadedness and was transferred to the hospital with 911 call. Initial evaluation showed unremarkable vital signs followed by abnormal serum amylase and lipase and cocaine in the serum. He was admitted for additional evaluation. PAST MEDICAL HISTORY: Hypertension, gastric bypass, multiple back surgeries, diabetes, depression, alcohol abuse and drug abuse. MEDICATIONS: Home medications, denied. ALLERGIES: NKDA. SOCIAL HISTORY: Positive for alcohol and drug abuse. FAMILY HISTORY: Noncontributory. REVIEW OF SYSTEMS: Negative for chest pain. Negative for shortness of breath. Negative for abnormal bleeding. Positive for abdominal pain. Negative for swelling or severe pain in the extremities. PHYSICAL EXAMINATION: VITAL SIGNS: Blood pressure 120/80, temperature 98.2 degrees, pulse oximetry 98% on room, pulse rate 72, and temperature 97.5 degrees. HEAD AND NECK: Atraumatic and normocephalic. CHEST: Clear to auscultation. HEART: S1 and S2. Regular rate and rhythm. ABDOMEN: Soft. No organomegaly. MUSCULOSKELETAL: No gross lateralized motor deficit. NEUROLOGY: The patient is awake, alert and oriented x3. LABORATORY AND DIAGNOSTIC DATA: Lab results dated 05/14/2015 shows WBC 11.5, hemoglobin 10.9, and platelets 340,000. Sodium 139, potassium 2.8, BUN 10 and creatinine 1. ALT and AST normal. Albumin 3.4. Lipase 313. Drug toxicology positive for cocaine and stool occult blood positive. ASSESSMENT: 1. Acute pancreatitis. 2. Drug toxicity. 3. Acute anemia. 4. Gastrointestinal bleed (positive for fecal occult blood). 5. Polysubstance abuse (including alcoholism and cocaine abuse). 6. Gastrointestinal and deep vein thrombosis prophylaxis. PLAN OF CARE: Continue with current management. Gastrointestinal, Dr. Young and Infectious Disease, Dr. Thompson have been consulted and notified. We will monitor the patient's hemoglobin level. Afshin Saeed M.D. DR: MABEL JOB#: [id number] CC:
[2016-05-16] VITALS: BP 125/71
[2016-05-16 04:00] VITALS: BP 109/68
[2016-05-16] MEDS: metroNIDAZOLE 500mg tab ORAL SCH ×3 (05:56→21:13)
[2016-05-16 06:15] LABS: BASOPHILS % (AUTO) 0.5 % (0.0-2.0); EOSINOPHILS % (AUTO) 0.7 % (0.0-3.0); LYMPHOCYTES % (AUTO) 25.5 % (20.0-45.0); MEAN CORPUSCULAR VOLUME 94 FL (80-99); MEAN PLATELET VOLUME 5.2 FL (6.5-10.1); MONOCYTES % (AUTO) 6.7 % (1.0-10.0); NEUTROPHILS % (AUTO) 66.6 % (45.0-75.0); PLATELET COUNT 331 K/UL (150-450); RED BLOOD COUNT 3.07 M/UL (4.70-6.10); RED CELL DISTRIBUTION WIDTH 12.7 % (11.6-14.8); WHITE BLOOD COUNT 7.3 K/UL (4.8-10.8)
[2016-05-16 06:32] LABS: AMYLASE 219 U/L (10-110); ANION GAP 12 (5-15); CALCIUM 7.9 mg/dL (8.6-10.2); CARBON DIOXIDE 26 mEQ/L (20-30); CHLORIDE 101 mEQ/L (98-107); CREATININE 0.7 mg/dL (0.7-1.2); GLOMERULAR FILTRATION RATE > 60 mL/min (>60); HEMOLYSIS 2; LIPASE 123 U/L (< 60); MAGNESIUM 1.9 mg/dL (1.7-2.5); PHOSPHORUS 2.9 mg/dL (2.5-4.8); POTASSIUM 3.4 mEQ/L (3.4-4.9); SODIUM 139 mEQ/L (135-145)
[2016-05-16 08:00] VITALS: BP 102/62
[2016-05-16] MEDS: Heparin 5000 units/ml inj SUBQ SCH ×3 (09:22→21:15)
[2016-05-16 12:00] VITALS: BP 111/73
--- NOTE | 2016-05-16 13:11 | General Progress Note ---
Assessment/Plan Status: stable Assessment/Plan 1- Sepsis 1. Acute pancreatitis. 2. Drug toxicity. 3. Acute anemia. 4. Gastrointestinal bleed (positive for fecal occult blood). 5. Polysubstance abuse (including alcoholism and cocaine abuse). 6. Gastrointestinal and deep vein thrombosis prophylaxis. Plan: Agree with current management Subjective Constitutional: Reports: weakness Allergies: Coded Allergies: No Known Allergies (Unverified , 05/14/16) Objective Last 24 Hour Vital Signs Date Time Temp Pulse Resp B/P Pulse Ox O2 Delivery O2 Flow Rate FiO2 05/16/16 08:00 55 05/16/16 08:00 98.1 65 23 102/62 100 Room Air 05/16/16 08:00 98.1 65 23 102/62 100 Room Air 05/16/16 04:09 51 05/16/16 04:00 98.0 76 20 109/68 100 Room Air 05/16/16 00:21 54 05/16/16 00:00 97.4 67 18 125/71 100 Room Air 05/15/16 20:00 97.7 57 20 130/65 100 Room Air 05/15/16 20:00 56 05/15/16 16:07 96.6 59 24 128/68 98 Room Air 05/15/16 16:00 58 Intake and Output 05/15/16 05/16/16 19:00 07:00 Intake Total 680 ml 700 ml Output Total 200 ml 1150 ml Balance 480 ml -450 ml Intake Oral 480 ml 600 ml IV Total 200 ml 100 ml Output Urine Total 200 ml 1150 ml # Voids 4 5 Laboratory Tests 05/16/16 04:00: White Blood Count 7.3, Red Blood Count 3.07L, Hemoglobin 9.2L, Hematocrit 28.9L , Mean Corpuscular Volume 94, Mean Corpuscular Hemoglobin 30.0, Mean Corpuscular Hemoglobin Concent 32.0, Red Cell Distribution Width 12.7, Platelet Count 331, Mean Platelet Volume 5.2L, Neutrophils (%) (Auto) 66.6, Lymphocytes ( %) (Auto) 25.5, Monocytes (%) (Auto) 6.7, Eosinophils (%) (Auto) 0.7, Basophils (%) (Auto) 0.5, Sodium Level 139, Potassium Level 3.4, Chloride Level 101, Carbon Dioxide Level 26, Anion Gap 12, Blood Urea Nitrogen 4L, Creatinine 0.7, Estimat Glomerular Filtration Rate > 60, Glucose Level 77, Calcium Level 7.9L, Phosphorus Level 2.9, Magnesium Level 1.9, Amylase Level 219H, Lipase 123H Height (Feet): 6 Height (Inches): 1.00 Weight (Pounds): 165 General Appearance: no apparent distress EENT: PERRL/EOMI Neck: supple Cardiovascular: normal rate Respiratory/Chest: lungs clear Abdomen: distended, guarding Extremities: non-tender Afshin Saeed MD May 16, 2016 13:11
--- NOTE | 2016-05-16 13:32 | GI Progress Note ---
Assessment/Plan Problems: (1) Cocaine abuse ICD Codes: F14.10 - Cocaine abuse, uncomplicated SNOMED: 47989460, 033497166 (2) Occult blood positive stool ICD Codes: R19.5 - Other fecal abnormalities SNOMED: 07827455, 936955428 (3) Hypoalbuminemia ICD Codes: E88.09 - Other disorders of plasma-protein metabolism, not elsewhere classified SNOMED: 513181174 (4) Pancreatitis ICD Codes: K85.90 - Acute pancreatitis without necrosis or infection, unspecified SNOMED: 61038062 (5) Hiatal hernia ICD Codes: K44.9 - Diaphragmatic hernia without obstruction or gangrene SNOMED: 31887033 (6) Elevated CEA ICD Codes: R97.0 - Elevated carcinoembryonic antigen [CEA] SNOMED: 43454050, 135020220 (7) Pancreatitis, acute ICD Codes: K85.90 - Acute pancreatitis without necrosis or infection, unspecified SNOMED: 086260887 (8) Diarrhea ICD Codes: R19.7 - Diarrhea, unspecified SNOMED: 42932849 Status: stable Status Narrative Discussed with Dr. Young. Assessment/Plan pt scheduled for EGD tomorrow to evaluate anemia >> OB stool positive + downtrending Hgb - NPO @ [place] regular diet, tolerating despite elevated lipase acute pancreatitis >> utox positive for cocaine use OB stool positive >> monitor H&H, transfuse prn per patient had colonoscopy few years prior with unremarkable results elevated CEA >> 4.[address] reviewed PPI fu labs Subjective Gastrointestinal/Abdominal: Reports: no symptoms Subjective pt states he feels alot better. denies any symptoms at this moment despite elevated lipase denies abdominal pain denies any ETOH use Objective Last 24 Hour Vital Signs Date Time Temp Pulse Resp B/P Pulse Ox O2 Delivery O2 Flow Rate FiO2 05/16/16 12:00 48 05/16/16 08:00 55 05/16/16 08:00 98.1 65 23 102/62 100 Room Air 05/16/16 08:00 98.1 65 23 102/62 100 Room Air 05/16/16 04:09 51 05/16/16 04:00 98.0 76 20 109/68 100 Room Air 05/16/16 00:21 54 05/16/16 00:00 97.4 67 18 125/71 100 Room Air 05/15/16 20:00 97.7 57 20 130/65 100 Room Air 05/15/16 20:00 56 05/15/16 16:07 96.6 59 24 128/68 98 Room Air 05/15/16 16:00 58 Intake and Output 05/15/16 05/16/16 19:00 07:00 Intake Total 680 ml 700 ml Output Total 200 ml 1150 ml Balance 480 ml -450 ml Intake Oral 480 ml 600 ml IV Total 200 ml 100 ml Output Urine Total 200 ml 1150 ml # Voids 4 5 Laboratory Tests Test 05/16/16 04:00 White Blood Count 7.3 K/UL (4.8-10.8) Red Blood Count 3.07 M/UL (4.70-6.10) L Hemoglobin 9.2 G/DL (14.2-18.0) L Hematocrit 28.9 % (42.0-52.0) L Mean Corpuscular Volume 94 FL (80-99) Mean Corpuscular Hemoglobin 30.0 PG (27.0-31.0) Mean Corpuscular Hemoglobin Concent 32.0 G/DL (32.0-36.0) Red Cell Distribution Width 12.7 % (11.6-14.8) Platelet Count 331 K/UL (150-450) Mean Platelet Volume 5.2 FL (6.5-10.1) L Neutrophils (%) (Auto) 66.6 % (45.0-75.0) Lymphocytes (%) (Auto) 25.5 % (20.0-45.0) Monocytes (%) (Auto) 6.7 % (1.0-10.0) Eosinophils (%) (Auto) 0.7 % (0.0-3.0) Basophils (%) (Auto) 0.5 % (0.0-2.0) Sodium Level 139 mEQ/L (135-145) Potassium Level 3.4 mEQ/L (3.4-4.9) Chloride Level 101 mEQ/L (98-107) Carbon Dioxide Level 26 mEQ/L (20-30) Anion Gap 12 (5-15) Blood Urea Nitrogen 4 mg/dL (7-23) L Creatinine 0.7 mg/dL (0.7-1.2) Estimat Glomerular Filtration Rate > 60 mL/min (>60) Glucose Level 77 mg/dL (74-106) Calcium Level 7.9 mg/dL (8.6-10.2) L Phosphorus Level 2.9 mg/dL (2.5-4.8) Magnesium Level 1.9 mg/dL (1.7-2.5) Amylase Level 219 U/L (10-110) H Lipase 123 U/L (< 60) H Height (Feet): 6 Height (Inches): 1.00 Weight (Pounds): 165 General Appearance: alert, thin Cardiovascular: normal rate Respiratory/Chest: normal breath sounds, no respiratory distress Abdominal Exam: normal bowel sounds, non tender, soft Extremities: normal range of motion Sabrina Roy N.P. May 16, 2016 13:32
--- NOTE | 2016-05-16 14:25 | Infectious Diseases Prog Note ---
Assessment/Plan Assessment/Plan ASSESSMENT: 65 y/o male with: Acute pancreatitis, m/l EtOH, cocaine - improved CT A/P: pancreas is poorly seen but grossly unremarkable. US: No acute findings. Limited evaluation. Diarrhea x 2 wk - resolved SIRS SP Leukocytosis - resolved Low grade fever x1 - resolved Multilevel lumbar laminectomy and fusion. Status post abdominal plasty involving anterior abdominal wall. 11 x 6 x 1.6 cm superficial thickwalled fluid collection over the left lateral hip. EtOH, cocaine abuse Negative HIV NKDA Full Code PLAN: DC IV Merrem, PO Flagyl d# 3, monitor pt off of ABX EGD per GI f/u final cultures Monitor CBC, temperatures Monitor BMP EtOH cessation advance diet as tolerated Subjective Allergies: Coded Allergies: No Known Allergies (Unverified , 05/14/16) Subjective no more fevers plan EGD tomorrow CT reviewed Objective Vital Signs Last 24 Hour Vital Signs Date Time Temp Pulse Resp B/P Pulse Ox O2 Delivery O2 Flow Rate FiO2 05/16/16 12:00 48 05/16/16 08:00 55 05/16/16 08:00 98.1 65 23 102/62 100 Room Air 05/16/16 08:00 98.1 65 23 102/62 100 Room Air 05/16/16 04:09 51 05/16/16 04:00 98.0 76 20 109/68 100 Room Air 05/16/16 00:21 54 05/16/16 00:00 97.4 67 18 125/71 100 Room Air 05/15/16 20:00 97.7 57 20 130/65 100 Room Air 05/15/16 20:00 56 05/15/16 16:07 96.6 59 24 128/68 98 Room Air 05/15/16 16:00 58 Height (Feet): 6 Height (Inches): 1.00 Weight (Pounds): 165 General Appearance: no acute distress Respiratory/Chest: no respiratory distress Cardiovascular: normal rate, regular rhythm Abdomen: normal bowel sounds, soft, non tender, non distended Microbiology Date/Time Source Procedure Growth Status 05/14/16 10:15 Nasal Nares MRSA Culture - Final NO METHICILLIN RESISTANT STAPH AUREUS... Complete 05/14/16 10:15 Stool VRE Culture - Final NO VANCOMYCIN RESISTANT ENTEROCOCCUS ... Complete Laboratory Tests Test 05/16/16 04:00 White Blood Count 7.3 K/UL (4.8-10.8) Red Blood Count 3.07 M/UL (4.70-6.10) L Hemoglobin 9.2 G/DL (14.2-18.0) L Hematocrit 28.9 % (42.0-52.0) L Mean Corpuscular Volume 94 FL (80-99) Mean Corpuscular Hemoglobin 30.0 PG (27.0-31.0) Mean Corpuscular Hemoglobin Concent 32.0 G/DL (32.0-36.0) Red Cell Distribution Width 12.7 % (11.6-14.8) Platelet Count 331 K/UL (150-450) Mean Platelet Volume 5.2 FL (6.5-10.1) L Neutrophils (%) (Auto) 66.6 % (45.0-75.0) Lymphocytes (%) (Auto) 25.5 % (20.0-45.0) Monocytes (%) (Auto) 6.7 % (1.0-10.0) Eosinophils (%) (Auto) 0.7 % (0.0-3.0) Basophils (%) (Auto) 0.5 % (0.0-2.0) Sodium Level 139 mEQ/L (135-145) Potassium Level 3.4 mEQ/L (3.4-4.9) Chloride Level 101 mEQ/L (98-107) Carbon Dioxide Level 26 mEQ/L (20-30) Anion Gap 12 (5-15) Blood Urea Nitrogen 4 mg/dL (7-23) L Creatinine 0.7 mg/dL (0.7-1.2) Estimat Glomerular Filtration Rate > 60 mL/min (>60) Glucose Level 77 mg/dL (74-106) Calcium Level 7.9 mg/dL (8.6-10.2) L Phosphorus Level 2.9 mg/dL (2.5-4.8) Magnesium Level 1.9 mg/dL (1.7-2.5) Amylase Level 219 U/L (10-110) H Lipase 123 U/L (< 60) H Current Medications Medications (Trade) Dose Ordered Sig/Ru Route PRN Reason Start Time Stop Time Status Last Admin Dose Admin Acetaminophen (Tylenol) 650 mg EVERY 8 HOURS PRN ORAL Mild Pain/Temp > 100.5 05/14/16 18:00 06/13/16 17:59 Heparin Sodium (Porcine) (Heparin 5000 units/ml) 5,000 units EVERY 12 HOURS SUBQ 05/14/16 21:00 06/13/16 20:59 05/16/16 09:22 Meropenem/Sodium Chloride (Merrem/Sodium Chloride 100ml bag) 100 ml @ 200 mls/hr Q8H IVPB 05/15/16 09:00 05/20/16 08:59 05/16/16 09:30 Metronidazole 500 mg 500 mg Q8HR ORAL 05/14/16 22:00 05/21/16 21:59 05/16/16 05:56 Morphine Sulfate (Morphine Sulfate) 2 mg EVERY 8 HOURS PRN IV Severe Pain (Pain Scale 7-10) 05/14/16 18:00 05/21/16 17:59 05/14/16 20:28 Pantoprazole (Protonix) 40 mg DAILY IVP 05/17/16 09:00 06/16/16 08:59 JUSTIN STEWART May 16, 2016 14:25
[2016-05-16 16:00] VITALS: BP 102/68
--- NOTE | 2016-05-16 17:55 | Cardiology Report ---
APPROVED REPORT EKG Measurement Heart [id number] Sinus rhythm with 1st degree AV block Otherwise normal ECG
[2016-05-16 20:00] VITALS: BP 112/67
[2016-05-17] VITALS (10 sets, daily range): BP systolic 98–124; BP diastolic 51–90
[2016-05-17 06:14] LABS: BASOPHILS % (AUTO) 0.6 % (0.0-2.0); EOSINOPHILS % (AUTO) 0.6 % (0.0-3.0); LYMPHOCYTES % (AUTO) 24.2 % (20.0-45.0); MEAN CORPUSCULAR HEMOGLOBIN 30.1 PG (27.0-31.0); MEAN CORPUSCULAR HGB CONC 30.8 G/DL (32.0-36.0); MEAN CORPUSCULAR VOLUME 98 FL (80-99); MEAN PLATELET VOLUME 5.6 FL (6.5-10.1); MONOCYTES % (AUTO) 5.8 % (1.0-10.0); NEUTROPHILS % (AUTO) 68.9 % (45.0-75.0); PLATELET COUNT 360 K/UL (150-450); RED BLOOD COUNT 3.18 M/UL (4.70-6.10); RED CELL DISTRIBUTION WIDTH 14.6 % (11.6-14.8); WHITE BLOOD COUNT 7.4 K/UL (4.8-10.8)
[2016-05-17 06:17] LABS: INR 1.1 (0.9-1.1); PROTHROMBIN TIME 11.3 SEC (9.30-11.50)
[2016-05-17 06:56] LABS: ANION GAP 12 (5-15); CALCIUM 7.9 mg/dL (8.6-10.2); CARBON DIOXIDE 26 mEQ/L (20-30); CHLORIDE 103 mEQ/L (98-107); CREATININE 0.9 mg/dL (0.7-1.2); GLOMERULAR FILTRATION RATE > 60 mL/min (>60); HEMOLYSIS 0; LIPASE 127 U/L (< 60); POTASSIUM 3.4 mEQ/L (3.4-4.9); SODIUM 141 mEQ/L (135-145)
[2016-05-17] MEDS: Pantoprazole Inj IVP SCH (08:41)
[2016-05-17] MEDS: Heparin 5000 units/ml inj SUBQ SCH ×2 (08:42→20:54)
--- NOTE | 2016-05-17 09:28 | Pre-Procedure Note/Attestation ---
Pre-Procedure Note/Attestation Complete Prior to Procedure Planned Procedure: not applicable Procedure Narrative: egd Indications for Procedure Pre-Operative Diagnosis: abd pain Attestation I attest that I discussed the nature of the procedure; its benefits; risks and complications; and alternatives (and the risks and benefits of such alternatives ), prior to the procedure, with the patient (or the patient's legal marketing development representative). I attest that, if there was a reasonable possibility of needing a blood transfusion, the patient (or the patient's legal marketing development representative) was given the [facility] standardized written summary, pursuant to the Gigi Chau Blood Safety Act ([place] Health and Safety Code # 1645, as amended). I attest that I re-evaluated the patient just prior to the surgery and that there has been no change in the patient's H&P, except as documented below: DONAVON BARAHONA May 17, 2016 09:28
[2016-05-17] MEDS ORDERED: NS 550ML IV ONE (09:35)
[2016-05-17] MEDS ORDERED: Lidocaine 1% MPF 10mg/ml 5ml ONE (09:55)
[2016-05-17] MEDS ORDERED: Propofol 10mg/ml 20ml IV ONE (09:55)
[2016-05-17] MEDS ORDERED: ePHEDrine 50mg/ml Inj ONE (09:55)
--- NOTE | 2016-05-17 10:06 | Endoscopy Procedure Note ---
Endoscopy Procedure Note Indication for Procedure: anemia Procedures Performed: EGD Operative Findings/Diagnosis: gastritis Specimen: yes Pt Tolerated Procedure Well: Yes Estimated Blood Loss: none Anesthesiologist: will Anesthesia: MAC Implant(s) used?: No 50 yrs or older w/o bx or poly: Not Applicable 10yrs. F/U not recommended: Not Applicable DONAVON BARAHONA May 17, 2016 10:05
--- NOTE | 2016-05-17 10:35 | General Progress Note ---
Assessment/Plan Status: stable Assessment/Plan 1. Acute pancreatitis. 2. Drug toxicity. 3. Acute anemia. 4. Gastrointestinal bleed (positive for fecal occult blood). 5. Polysubstance abuse (including alcoholism and cocaine abuse). 6. Gastrointestinal and deep vein thrombosis prophylaxis. 7. Deconditioning Plan: Gutiérrez endocscopy Discharge to [facility] once medically stable. Agree with current management Subjective ROS Limited/Unobtainable: No Constitutional: Reports: malaise HEENT: Reports: no symptoms Cardiovascular: Reports: no symptoms Respiratory: Reports: no symptoms Gastrointestinal/Abdominal: Reports: no symptoms Allergies: Coded Allergies: No Known Allergies (Unverified , 05/14/16) Objective Last 24 Hour Vital Signs Date Time Temp Pulse Resp B/P Pulse Ox O2 Delivery O2 Flow Rate FiO2 05/17/16 10:27 97.6 65 15 103/69 98 Room Air 05/17/16 10:20 51 15 102/78 100 Nasal Cannula 3.0 05/17/16 10:15 53 14 112/73 100 Nasal Cannula 3.0 05/17/16 10:10 97.8 49 16 109/73 100 Nasal Cannula 3.0 05/17/16 08:00 96.8 54 18 98/66 100 Room Air 05/17/16 08:00 67 05/17/16 04:00 98.0 60 20 124/55 100 Room Air 05/17/16 04:00 48 05/17/16 00:00 97.7 52 20 113/51 100 Room Air 05/17/16 00:00 49 05/16/16 20:00 96.8 64 14 112/67 100 Room Air 05/16/16 20:00 59 05/16/16 16:00 58 05/16/16 16:00 97.3 57 14 102/68 100 Room Air 05/16/16 12:00 48 05/16/16 12:00 98.2 64 20 111/73 99 Room Air 05/16/16 12:00 98.2 64 20 111/73 99 Room Air Intake and Output 05/16/16 05/17/16 19:00 07:00 Intake Total 1000 ml 600 ml Output Total 400 ml Balance 1000 ml 200 ml Intake Oral 800 ml 600 ml IV Total 200 ml Output Urine Total 400 ml # Voids 4 Laboratory Tests 05/17/16 04:35: White Blood Count 7.4, Red Blood Count 3.18L, Hemoglobin 9.6L, Hematocrit 31.1L , Mean Corpuscular Volume 98, Mean Corpuscular Hemoglobin 30.1, Mean Corpuscular Hemoglobin Concent 30.8L, Red Cell Distribution Width 14.6, Platelet Count 360, Mean Platelet Volume 5.6L, Neutrophils (%) (Auto) 68.9, Lymphocytes (%) (Auto) 24.2, Monocytes (%) (Auto) 5.8, Eosinophils (%) (Auto) 0.6, Basophils (%) (Auto) 0.6, Prothrombin Time 11.3, Prothromb Time International Ratio 1.1, Activated Partial Thromboplast Time 31, Sodium Level 141, Potassium Level 3.4, Chloride Level 103, Carbon Dioxide Level 26, Anion Gap 12, Blood Urea Nitrogen 4L, Creatinine 0.9, Estimat Glomerular Filtration Rate > 60, Glucose Level 77, Calcium Level 7.9L, Lipase 127H Height (Feet): 6 Height (Inches): 1.00 Weight (Pounds): 165 General Appearance: WD/WN EENT: PERRL/EOMI Neck: supple Cardiovascular: normal rate Respiratory/Chest: lungs clear Abdomen: soft Extremities: other - atrophied muscles, Neurologic: oriented x 3 Afshin Saeed MD May 17, 2016 10:35
--- NOTE | 2016-05-17 10:37 | Immediate Post-Op Evaluation ---
Immediate Post-Op Evalulation Immediate Post-Op Evalulation Procedure: EGD Date of Evaluation: May 17, 2016 Time of Evaluation: 10:12 IV Fluids: 300 Blood Pressure Systolic: 109 Blood Pressure Diastolic: 73 Pulse Rate: 60 O2 Sat by Pulse Oximetry: 99 Nausea: No Vomiting: No Complications none Patient Status: awake, patent Hydration Status: adequate Drug: none JUNE ANDERS CRNA May 17, 2016 10:37
--- NOTE | 2016-05-17 10:42 | Anethesia Preoperative Eval ---
Anesthesia Pre-op PMH/ROS General Date of Evaluation: May 17, 2016 Time of Evaluation: 09:50 Anesthesiologist: donna ASA Score: ASA 3 Mallampati Score Class I : Soft palate, uvula, fauces, pillars visible Class II: Soft palate, uvula, fauces visible Class III: Soft palate, base of uvula visible Class IV: Only hard plate visible Mallampati Classification: Class III Surgeon: sinan Surgical Procedure: EGD Anesthesia History: none Social History: alcohol use, drug use Family History: no anesthesia problems Allergies: Coded Allergies: No Known Allergies (Unverified , 05/14/16) Medications: see eMAR Past Medical History Cardiovascular: Reports: HTN Pulmonary: Denies: COPD, PITER, asthma, other Gastrointestinal/Genitourinary: Denies: CRI, ESRD, GERD, other Neurologic/Psychiatric: Denies: CVA, TIA, dementia, depression/anxiety, other Endocrine: Denies: DM, hypothyroidism, other, steroids Hematology/Immune: Denies: DVT, anemia, bleeding disorder, other Musculoskeletal/Integumentary: Denies: DDD, DJD, OA, RA, edema, other PMH Narrative: The patient is a 65-year-old male with a history of alcohol consumption, who presented with the lightheadedness and was transferred to the hospital with 911 call. Initial evaluation showed unremarkable vital signs followed by abnormal serum amylase and lipase and cocaine in the serum. He was admitted for additional evaluation. PSxH Narrative: gastric bypass Anesthesia Pre-op Phys. Exam Physician Exam Last Vital Signs Date Time Temp Pulse Resp B/P Pulse Ox O2 Delivery O2 Flow Rate FiO2 05/17/16 10:27 97.6 65 15 103/69 98 Room Air 05/17/16 10:20 3.0 Constitutional: NAD Neurologic: CN 2-12 intact Cardiovascular: RRR Respiratory: CTA Gastrointestinal: S/NT/ND Airway Exam Mallampati Classification 3 MO: full ROM: full Teeth: missing, intact, broken, loose Dentures: no lower, no upper Anesthesia Pre-op A/P Labs Hematology Test 05/17/16 04:35 White Blood Count 7.4 K/UL (4.8-10.8) Red Blood Count 3.18 M/UL (4.70-6.10) L Hemoglobin 9.6 G/DL (14.2-18.0) L Hematocrit 31.1 % (42.0-52.0) L Mean Corpuscular Volume 98 FL (80-99) Mean Corpuscular Hemoglobin 30.1 PG (27.0-31.0) Mean Corpuscular Hemoglobin Concent 30.8 G/DL (32.0-36.0) L Red Cell Distribution Width 14.6 % (11.6-14.8) Platelet Count 360 K/UL (150-450) Mean Platelet Volume 5.6 FL (6.5-10.1) L Neutrophils (%) (Auto) 68.9 % (45.0-75.0) Lymphocytes (%) (Auto) 24.2 % (20.0-45.0) Monocytes (%) (Auto) 5.8 % (1.0-10.0) Eosinophils (%) (Auto) 0.6 % (0.0-3.0) Basophils (%) (Auto) 0.6 % (0.0-2.0) Coagulation Test 05/17/16 04:35 Prothrombin Time 11.3 SEC (9.30-11.50) Prothromb Time International Ratio 1.1 (0.9-1.1) Activated Partial Thromboplast Time 31 SEC (23-33) Chemistry Test 05/17/16 04:35 Sodium Level 141 mEQ/L (135-145) Potassium Level 3.4 mEQ/L (3.4-4.9) Chloride Level 103 mEQ/L (98-107) Carbon Dioxide Level 26 mEQ/L (20-30) Anion Gap 12 (5-15) Blood Urea Nitrogen 4 mg/dL (7-23) L Creatinine 0.9 mg/dL (0.7-1.2) Estimat Glomerular Filtration Rate > 60 mL/min (>60) Glucose Level 77 mg/dL (74-106) Calcium Level 7.9 mg/dL (8.6-10.2) L Lipase 127 U/L (< 60) H Studies Pre-op Studies: EKG - sr Risk Assessment & Plan Plan: mac Status Change Before Surgery: No Pre-Antibiotics Drug: non TARRILLIONJUNE CRNA May 17, 2016 10:42
--- NOTE | 2016-05-17 10:43 | 48 Hour Post Anesthesia Eval ---
Post Anesthesia Evaluation Procedure: EGD Date of Evaluation: May 17, 2016 Time of Evaluation: 10:42 Blood Pressure Systolic: 103 0: 69 Pulse Rate: 65 O2 Sat by Pulse Oximetry: 99 Airway: patent Nausea: No Vomiting: No Hydration Status: adequate Mental Status/LOC: patient returned to baseline Post-Anesthesia Complications: none Follow-up care needed: N/A JUNE ANDERS CRNA May 17, 2016 10:43
--- NOTE | 2016-05-17 15:44 | Infectious Diseases Prog Note ---
Assessment/Plan Assessment/Plan ASSESSMENT: 65 y/o male with: Acute pancreatitis, m/l EtOH, cocaine - improved CT A/P: pancreas is poorly seen but grossly unremarkable. US: No acute findings. Limited evaluation. Diarrhea x 2 wk - resolved SIRS SP Leukocytosis - resolved Low grade fever x1 - resolved Normocytic anemia - Hgb stable SP EGD 05/17: gastritis Multilevel lumbar laminectomy and fusion. Status post abdominal plasty involving anterior abdominal wall. 11 x 6 x 1.6 cm superficial thickwalled fluid collection over the left lateral hip. EtOH, cocaine abuse Negative HIV NKDA Full Code PLAN: ok to DC off of ABX from ID standpoint ( 05/16 SP IV Merrem, PO Flagyl d# 3 ) f/u final cultures Monitor CBC, temperatures Monitor BMP EtOH cessation advance diet as tolerated Subjective Allergies: Coded Allergies: No Known Allergies (Unverified , 05/14/16) Subjective remains afebrile SP EGD: gastritis Objective Vital Signs Last 24 Hour Vital Signs Date Time Temp Pulse Resp B/P Pulse Ox O2 Delivery O2 Flow Rate FiO2 05/17/16 12:00 96.8 56 16 109/68 98 Room Air 05/17/16 12:00 58 05/17/16 10:43 65 99 05/17/16 10:37 60 99 05/17/16 10:27 97.6 65 15 103/69 98 Room Air 05/17/16 10:20 51 15 102/78 100 Nasal Cannula 3.0 05/17/16 10:15 53 14 112/73 100 Nasal Cannula 3.0 05/17/16 10:10 97.8 49 16 109/73 100 Nasal Cannula 3.0 05/17/16 08:00 96.8 54 18 98/66 100 Room Air 05/17/16 08:00 67 05/17/16 04:00 98.0 60 20 124/55 100 Room Air 05/17/16 04:00 48 05/17/16 00:00 97.7 52 20 113/51 100 Room Air 05/17/16 00:00 49 05/16/16 20:00 96.8 64 14 112/67 100 Room Air 05/16/16 20:00 59 05/16/16 16:00 58 05/16/16 16:00 97.3 57 14 102/68 100 Room Air Height (Feet): 6 Height (Inches): 1.00 Weight (Pounds): 165 General Appearance: no acute distress Respiratory/Chest: no respiratory distress Cardiovascular: normal rate, regular rhythm Abdomen: normal bowel sounds, soft, non tender, non distended Laboratory Tests Test 05/17/16 04:35 White Blood Count 7.4 K/UL (4.8-10.8) Red Blood Count 3.18 M/UL (4.70-6.10) L Hemoglobin 9.6 G/DL (14.2-18.0) L Hematocrit 31.1 % (42.0-52.0) L Mean Corpuscular Volume 98 FL (80-99) Mean Corpuscular Hemoglobin 30.1 PG (27.0-31.0) Mean Corpuscular Hemoglobin Concent 30.8 G/DL (32.0-36.0) L Red Cell Distribution Width 14.6 % (11.6-14.8) Platelet Count 360 K/UL (150-450) Mean Platelet Volume 5.6 FL (6.5-10.1) L Neutrophils (%) (Auto) 68.9 % (45.0-75.0) Lymphocytes (%) (Auto) 24.2 % (20.0-45.0) Monocytes (%) (Auto) 5.8 % (1.0-10.0) Eosinophils (%) (Auto) 0.6 % (0.0-3.0) Basophils (%) (Auto) 0.6 % (0.0-2.0) Prothrombin Time 11.3 SEC (9.30-11.50) Prothromb Time International Ratio 1.1 (0.9-1.1) Activated Partial Thromboplast Time 31 SEC (23-33) Sodium Level 141 mEQ/L (135-145) Potassium Level 3.4 mEQ/L (3.4-4.9) Chloride Level 103 mEQ/L (98-107) Carbon Dioxide Level 26 mEQ/L (20-30) Anion Gap 12 (5-15) Blood Urea Nitrogen 4 mg/dL (7-23) L Creatinine 0.9 mg/dL (0.7-1.2) Estimat Glomerular Filtration Rate > 60 mL/min (>60) Glucose Level 77 mg/dL (74-106) Calcium Level 7.9 mg/dL (8.6-10.2) L Lipase 127 U/L (< 60) H Current Medications Medications (Trade) Dose Ordered Sig/Ru Route PRN Reason Start Time Stop Time Status Last Admin Dose Admin Acetaminophen (Tylenol) 650 mg EVERY 8 HOURS PRN ORAL Mild Pain/Temp > 100.5 05/14/16 18:00 06/13/16 17:59 Heparin Sodium (Porcine) (Heparin 5000 units/ml) 5,000 units EVERY 12 HOURS SUBQ 05/14/16 21:00 06/13/16 20:59 05/17/16 08:42 Morphine Sulfate (Morphine Sulfate) 2 mg EVERY 8 HOURS PRN IV Severe Pain (Pain Scale 7-10) 05/14/16 18:00 05/21/16 17:59 05/14/16 20:28 Pantoprazole (Protonix) 40 mg DAILY IVP 05/17/16 09:00 06/16/16 08:59 05/17/16 08:41 JUSTIN STEWART May 17, 2016 15:44
--- NOTE | 2016-05-17 18:18 | Procedure Note ---
DATE OF PROCEDURE: 05/17/2016 SURGEON: Tavo Young M.D. PROCEDURE: Upper endoscopy with biopsy. ANESTHESIA: Per Joseline Rucker CRNA. INSTRUMENT: Olympus adult flexible upper endoscope. INDICATION: 1. Anemia. 2. Stool OB positive. REASON FOR PROCEDURE: The procedure, risks, benefits, and possible consequences, including hemorrhage, aspiration, perforation and infection, and alternative treatments, were explained to the patient/legal guardian by Dr. Tavo Young and the patient/legal guardian understood and accepted these risks. DESCRIPTION OF PROCEDURE: After informed consent was obtained and the patient was adequately sedated, Olympus upper endoscope was advanced from mouth into the esophagus. After the esophagus, we got through a very small gastric pouch and then into the small intestine. The patient has history of gastric bypass surgery. There is no evidence of any ulceration, no anastomotic ulceration, no ischemia ulceration, and no active upper gastrointestinal bleeding. Random biopsy from the gastric pouch was obtained to rule out H. pylori infection. The patient tolerated the procedure without any complication. SUMMARY OF FINDINGS: History of gastric bypass with a small gastric pouch without any anastomotic ulceration or any source of upper gastrointestinal bleeding. RECOMMENDATIONS: 1. Followup biopsy results. 2. The patient had a normocytic anemia. We offered the patient colonoscopy, but at this time, the patient refuses. He said he recently had one done already, so the patient would be managed for pancreatitis and be discharged and followed as an outpatient I want to thank, Dr. Saeed, for this kind referral. Tavo Young M.D. DR: RAMOS JOB#: [id number] CC: Afshin Saeed M.D.
[2016-05-18 00:17] VITALS: BP 107/52
[2016-05-18 02:33] VITALS: BP 110/70
[2016-05-18 04:00] VITALS: BP 104/60
[2016-05-18 08:00] VITALS: BP 127/55
[2016-05-18] MEDS: Pantoprazole Inj IVP SCH (08:20)
[2016-05-18 08:23] LABS: ALANINE AMINOTRANSFERASE 9 U/L (3-41); ALBUMIN/GLOBULIN RATIO 0.6 (1.0-2.7); AMYLASE 229 U/L (10-110); ANION GAP 9 (5-15); ASPARTATE AMINO TRANSFERASE 19 U/L (5-40); CALCIUM 8.6 mg/dL (8.6-10.2); CARBON DIOXIDE 32 mEQ/L (20-30); CHLORIDE 103 mEQ/L (98-107); CHOLESTEROL 83 mg/dL (< 200); CHOLESTEROL/HDL RATIO 1.6 (3.3-4.4); CREATININE 0.8 mg/dL (0.7-1.2); GLOMERULAR FILTRATION RATE > 60 mL/min (>60); HEMOLYSIS 5; LDL CHOLESTEROL (CALC.) 22 mg/dL (60-99); LIPASE 149 U/L (< 60); POTASSIUM 3.2 mEQ/L (3.4-4.9); SODIUM 144 mEQ/L (135-145); TOTAL PROTEIN 6.9 g/dL (6.6-8.7)
[2016-05-18] MEDS: Morphine Sulfate 2mg/ml Inj IV PRN (08:23)
[2016-05-18] MEDS: Heparin 5000 units/ml inj SUBQ SCH (09:00)
[2016-05-18 12:16] VITALS: BP 108/79
--- NOTE | 2016-05-18 13:43 | GI Progress Note ---
Assessment/Plan Problems: (1) Cocaine abuse ICD Codes: F14.10 - Cocaine abuse, uncomplicated SNOMED: 94469039, 435974804 (2) Occult blood positive stool ICD Codes: R19.5 - Other fecal abnormalities SNOMED: 92125155, 454522265 (3) Hypoalbuminemia ICD Codes: E88.09 - Other disorders of plasma-protein metabolism, not elsewhere classified SNOMED: 843443635 (4) Pancreatitis ICD Codes: K85.90 - Acute pancreatitis without necrosis or infection, unspecified SNOMED: 79644405 (5) Hiatal hernia ICD Codes: K44.9 - Diaphragmatic hernia without obstruction or gangrene SNOMED: 22286098 (6) Elevated CEA ICD Codes: R97.0 - Elevated carcinoembryonic antigen [CEA] SNOMED: 37748043, 433755404 (7) Pancreatitis, acute ICD Codes: K85.90 - Acute pancreatitis without necrosis or infection, unspecified SNOMED: 784222327 (8) Diarrhea ICD Codes: R19.7 - Diarrhea, unspecified SNOMED: 79105780 Status: stable Status Narrative Discussed with Dr. Young. Assessment/Plan ok for DC per GI standpoint regular diet, tolerating with no complaints of pain despite elevated lipase acute pancreatitis >> utox positive for cocaine use OB stool positive >> monitor H&H, transfuse prn per patient had colonoscopy last prior with unremarkable results elevated CEA >> 4.[address] reviewed PPI fu labs outpatient f/u Subjective Subjective no symptoms, wishes to be discharged denies abdominal pain denies any ETOH use Objective Last 24 Hour Vital Signs Date Time Temp Pulse Resp B/P Pulse Ox O2 Delivery O2 Flow Rate FiO2 05/18/16 12:31 60 05/18/16 12:16 96.9 70 17 108/79 97 05/18/16 08:00 96.9 50 17 127/55 95 Room Air 05/18/16 08:00 60 05/18/16 04:00 97.0 49 20 104/60 100 Room Air 05/18/16 03:58 62 05/18/16 02:33 97.5 47 20 110/70 98 Room Air 05/18/16 00:17 98.8 58 20 107/52 93 Room Air 05/18/16 00:00 61 05/17/16 20:08 96.6 55 14 98/60 100 Room Air 05/17/16 20:00 61 05/17/16 16:14 97.9 55 14 113/90 100 Room Air 05/17/16 16:00 54 Intake and Output 05/17/16 05/18/16 19:00 07:00 Intake Total 1240 ml 600 ml Output Total 0 ml Balance 1240 ml 600 ml Intake Oral 1040 ml 600 ml IV Total 200 ml Estimated Blood Loss 0 ml # Voids 5 5 # Bowel Movements 1 Laboratory Tests Test 05/18/16 07:15 Sodium Level 144 mEQ/L (135-145) Potassium Level 3.2 mEQ/L (3.4-4.9) L Chloride Level 103 mEQ/L (98-107) Carbon Dioxide Level 32 mEQ/L (20-30) H Anion Gap 9 (5-15) Blood Urea Nitrogen 3 mg/dL (7-23) L Creatinine 0.8 mg/dL (0.7-1.2) Estimat Glomerular Filtration Rate > 60 mL/min (>60) Glucose Level 84 mg/dL (74-106) Calcium Level 8.6 mg/dL (8.6-10.2) Total Bilirubin < 0.2 mg/dL (0.0-1.2) Aspartate Amino Transf (AST/SGOT) 19 U/L (5-40) Alanine Aminotransferase (ALT/SGPT) 9 U/L (3-41) Alkaline Phosphatase 75 U/L (40-129) Total Protein 6.9 g/dL (6.6-8.7) Albumin 2.8 g/dL (3.5-5.2) L Globulin 4.1 g/dL Albumin/Globulin Ratio 0.6 (1.0-2.7) L Triglycerides Level 40 mg/dL (< 150) Cholesterol Level 83 mg/dL (< 200) LDL Cholesterol 22 mg/dL (60-99) L HDL Cholesterol 53 mg/dL (> 60) Cholesterol/HDL Ratio 1.6 (3.3-4.4) L Amylase Level 229 U/L (10-110) H Lipase 149 U/L (< 60) H Hepatitis A IgM Antibody Pending Hepatitis B Surface Antigen Pending Hepatitis B Core IgM Antibody Pending Hepatitis C Antibody Pending Height (Feet): 6 Height (Inches): 1.00 Weight (Pounds): 165 General Appearance: no apparent distress, alert Cardiovascular: normal rate Respiratory/Chest: normal breath sounds, no respiratory distress Abdominal Exam: normal bowel sounds, non tender, soft Extremities: normal range of motion Sabrina Roy N.P. May 18, 2016 13:43
--- NOTE | 2016-05-18 16:40 | General Progress Note ---
Assessment/Plan Status: stable Assessment/Plan 1. Acute pancreatitis. 2. Drug toxicity. 3. Acute anemia. 4. Gastrointestinal bleed (positive for fecal occult blood). 5. Polysubstance abuse (including alcoholism and cocaine abuse). 6. Gastrointestinal and deep vein thrombosis prophylaxis. 7. Deconditioning Plan: Medically stable for out patient followup Subjective ROS Limited/Unobtainable: No Constitutional: Reports: no symptoms HEENT: Reports: no symptoms Cardiovascular: Reports: no symptoms Allergies: Coded Allergies: No Known Allergies (Unverified , 05/14/16) Objective Last 24 Hour Vital Signs Date Time Temp Pulse Resp B/P Pulse Ox O2 Delivery O2 Flow Rate FiO2 05/18/16 12:31 60 05/18/16 12:16 96.9 70 17 108/79 97 05/18/16 08:00 96.9 50 17 127/55 95 Room Air 05/18/16 08:00 60 05/18/16 04:00 97.0 49 20 104/60 100 Room Air 05/18/16 03:58 62 05/18/16 02:33 97.5 47 20 110/70 98 Room Air 05/18/16 00:17 98.8 58 20 107/52 93 Room Air 05/18/16 00:00 61 05/17/16 20:08 96.6 55 14 98/60 100 Room Air 05/17/16 20:00 61 Intake and Output 05/17/16 05/18/16 19:00 07:00 Intake Total 1240 ml 600 ml Output Total 0 ml Balance 1240 ml 600 ml Intake Oral 1040 ml 600 ml IV Total 200 ml Estimated Blood Loss 0 ml # Voids 5 5 # Bowel Movements 1 Laboratory Tests 05/18/16 07:15: Sodium Level 144, Potassium Level 3.2L, Chloride Level 103, Carbon Dioxide Level 32H, Anion Gap 9, Blood Urea Nitrogen 3L, Creatinine 0.8, Estimat Glomerular Filtration Rate > 60, Glucose Level 84, Calcium Level 8.6, Total Bilirubin < 0.2, Aspartate Amino Transf (AST/SGOT) 19, Alanine Aminotransferase (ALT/SGPT) 9, Alkaline Phosphatase 75, Total Protein 6.9, Albumin 2.8L, Globulin 4.1, Albumin/Globulin Ratio 0.6L, Triglycerides Level 40, Cholesterol Level 83, LDL Cholesterol 22L, HDL Cholesterol 53, Cholesterol/HDL Ratio 1.6L, Amylase Level 229H, Lipase 149H, Hepatitis A IgM Antibody [Pending], Hepatitis B Surface Antigen [Pending], Hepatitis B Core IgM Antibody [Pending], Hepatitis C Antibody [Pending] Height (Feet): 6 Height (Inches): 1.00 Weight (Pounds): 165 General Appearance: no apparent distress EENT: PERRL/EOMI Neck: supple Cardiovascular: normal rate Respiratory/Chest: lungs clear Abdomen: soft Extremities: non-tender Neurologic: oriented x 3 Afshin Saeed MD May 18, 2016 16:40
[2016-05-18] MEDS ORDERED: Tubing IV Secondary IV ONE (17:38)
[2016-05-18] MEDS ORDERED: NS 275ml ONE (17:38)
--- NOTE | 2016-05-19 11:10 | Discharge Summary ---
Discharge Summary Hospital Course Date of Admission May 14, 2016 at 11:35 Date of Discharge May 18, 2016 at 15:40 Admitting Diagnosis PANCREATITIS, HYPOKALEMIA MALI Salmeron Mike Christensen is a 65 year old male who was admitted on May 14, 2016 at 11:35 for Pancreatitis,Hypokalemia Hospital Course [id number] Discharge Discharge Disposition Patient was discharged to SNF/Subacute Facility(03) Discharge Diagnoses: Aisha Lackey NP May 19, 2016 11:10
--- NOTE | 2016-05-19 23:58 | Discharge Summary 2 SIG ---
DATE OF ADMISSION: 05/14/2016 DATE OF DISCHARGE: 05/18/2016 AQUATICS DIRECTOR: 1. Tavo Young M.D. 2. Allen Montes M.D. BRIEF HOSPITAL COURSE: The patient is a 65-year-old, with history of alcohol consumption, presented with lightheadedness and was transferred to the hospital via 911 call. On initial evaluation showed unremarkable vital signs. However, amylase and lipase were elevated and was positive for cocaine. Dr. Thompson was consulted for diarrhea and pancreatitis. The patient was complaining of diarrhea for the past three weeks and also admitted for excessive drinking. He was found to have low-grade fever and mild leukocytosis and was started on meropenem and Flagyl. CT of the abdomen and pelvis was done, pancreas poorly seen, but grossly unremarkable. Diarrhea resolved. Hemoglobin was trending down. Occult blood was positive. Dr. Young was consulted and patient underwent EGD on 05/17/2016 with findings of gastritis and prior gastric bypass with small gastric pouch without any anastomotic ulceration or upper GI bleed. He was offered colonoscopy, but the patient refused. Diet was advanced. Antibiotics were discontinued. The patient was eventually discharged to a [facility]. FINAL DIAGNOSES: 1. Acute pancreatitis. 2. Drug toxicity. 3. Acute anemia. 4. Gastrointestinal bleed with positive fecal occult blood. 5. Polysubstance abuse including alcohol and cocaine abuse. 6. Deconditioning. Afshin Saeed M.D. I have been assigned to dictate discharge summary on this account and I was not involved in the patient's management. Aisha Lackey N.P. DR: MALKA JOB#: [id number] CC: LAURA
== END 2016-05-18 15:40 | DRG 439 ==
LOC: EDBD 09:47 → EMR 10:20 → EDBEDREQ 11:31 → 2W 11:35 → EDBEDREQ 12:28 → 2E 05-18 02:17
PROC: 0DB68ZX Excision of Stomach, Via Natural or Artificial Opening Endoscopic, Diagnostic (ICD-10-PCS; principal; 2016-05-17 09:55)
DX: K85.20 Alcohol induced acute pancreatitis without necrosis or infection (principal); K92.2 Gastrointestinal hemorrhage, unspecified; E88.09 Other disorders of plasma-protein metabolism, not elsewhere classified; I10 Essential (primary) hypertension; D64.9 Anemia, unspecified; K29.70 Gastritis, unspecified, without bleeding; E11.9 Type 2 diabetes mellitus without complications; E87.6 Hypokalemia; Z98.84 Bariatric surgery status; F17.210 Nicotine dependence, cigarettes, uncomplicated; K44.9 Diaphragmatic hernia without obstruction or gangrene; R97.0 Elevated carcinoembryonic antigen [CEA]
CPT/HCPCS: 36415; 74177; 76700; 80048; 80053; 80061; 80300; 81003; 82150; 82270; 82378; 83036; 83540; 83550; 83690; 83735; 84100; 84443; 84484; 85025; 85610; 85730; 86703; 86705; 86709; 86803; 87081; 87340; 93005; 94003; 94150; J2405; J8499

== ENCOUNTER 2016-05-31 15:21 | Inpatient (IN) | payer MEDICARE, MEDICAID ==
[~2016-05-31] VITALS: Ht 185.4 cm; Wt 66.2 kg
--- NOTE | 2016-05-31 15:35 | Emergency Room Report ---
History of Present Illness General Chief Complaint: Generalized Weakness Source: Patient, Medical Record, EMS Present Illness HPI 65-year-old male presents emergency department [facility] complaining of intractable vomiting in addition to generalized weakness x4 days. Patient reports that he believes he has had the vomiting x10 days. Patient reports history of pancreatitis denies abdominal pain denies nausea. he denies dizziness, chest pain, recent falls. Patient denies fevers or chills. Denies blood in the vomit denies black tarry stools or blood in the stools . Denies constipation or diarrhea. Denies CP, Palpitations, LOC, AMS, dizziness, Changes in Vision, Sensation, paresthesias, or a sudden severe headache. Allergies: Coded Allergies: No Known Allergies (Unverified , 05/14/16) Patient History Past Medical History: see triage record Past Surgical History: none Pertinent Family History: none Immunizations: UTD Reviewed Nursing Documentation: PMH: Agreed, PSxH: Agreed Nursing Documentation-PMH Hx Cardiac Problems: Yes - pancreatitis, pressure ulcer on the left buttock stage II, hypovalemia Hx Hypertension: Yes Hx Diabetes: No - borderline Hx Cancer: No Hx Gastrointestinal Problems: Yes Hx Neurological Problems: No Review of Systems All Other Systems: negative except mentioned in HPI Physical Exam Vital Signs Date Time Temp Pulse Resp B/P Pulse Ox O2 Delivery O2 Flow Rate FiO2 05/31/16 15:21 98.2 48 16 129/79 98 Room Air Sp02 EP Interpretation: reviewed, abnormal - Pt. is bradycardic in the high 40' s and intermittently will normalize to the 60's bpm's General Appearance: no apparent distress, alert, GCS 15, mild distress - intermittent vomiting/ spitting out., thin Head: normocephalic, atraumatic Eyes: bilateral eye PERRL, bilateral eye normal inspection ENT: hearing grossly normal, normal pharynx, no angioedema, normal voice Neck: full range of motion, supple/symm/no masses Respiratory: chest non-tender, lungs clear, normal breath sounds, speaking full sentences Cardiovascular #1: regular rate, rhythm, no edema Cardiovascular #2: 2+ radial (R), 2+ radial (L) Gastrointestinal: normal bowel sounds, non tender, soft, no guarding, no rebound Rectal: deferred Genitourinary: normal inspection, no CVA tenderness Musculoskeletal: back normal, gait/station normal, normal range of motion, non- tender, no calf tenderness Neurologic: alert, oriented x3, responsive, motor strength/tone normal, sensory intact, speech normal Psychiatric: judgement/insight normal, memory normal, mood/affect normal, no suicidal/homicidal ideation Skin: normal color, no rash, warm/dry, well hydrated Lymphatic: no adenopathy Medical Decision Making PA Attestation Dr. Luna is my supervising Physician whom patient management has been discussed with. Diagnostic Impression: Primary Impression: Bradycardia Additional Impressions: Anemia Qualified Codes: D64.9 - Anemia, unspecified Infiltrate of lung present on imaging of chest Pneumonia Qualified Codes: J18.9 - Pneumonia, unspecified organism ER Course Pt. presents to the ED c/o Generalized weakness and vomiting x 4 days. Pt from SNF. Ddx considered but are not limited to :Dysrhythmia, MS, MG, [place], [place], drug intoxication, Dehydration/hypovolemia, infection, rhabdomyolysis, ETOH, CVA /TIA, Dehydration, Vital signs: Pt noted to by Bradycardic , pt. is afebrile H&PE are most consistent with bradycardia ORDERS: -CBC: no evidence leukocytosis, low hg and hct. consistent with anemia. -CMP: WNL no evidence of electrolyte abnormality -Total CK: WNL -CK-MB: WNL -Troponin: WNL less than 0.3 -UDS: pending EKG: Bradycardia 47 BPM NS, no acute ST changes, -interpreted by Dr. Luna. -CXR: left sided pulmonary infiltrate/pleural effusion noted per preliminary read in the ED by Dr. Luna. ED INTERVENTIONS: -1000cc NS bolus -4mg Zofran IVP - 1g Vancomycin IV -Zosyn 2.5g IV DISPOSITION: at this time pt. will be admitted to Dr. Saeed for Bradycardia, and generalized weakness. Dr. Saeed agreed to admit the pt. and to continue pt. care management. Labs Test 05/31/16 16:05 White Blood Count 4.9 K/UL (4.8-10.8) Red Blood Count 3.61 M/UL (4.70-6.10) Hemoglobin 10.6 G/DL (14.2-18.0) Hematocrit 34.0 % (42.0-52.0) Mean Corpuscular Volume 94 FL (80-99) Mean Corpuscular Hemoglobin 29.3 PG (27.0-31.0) Mean Corpuscular Hemoglobin Concent 31.1 G/DL (32.0-36.0) Red Cell Distribution Width 13.5 % (11.6-14.8) Platelet Count 256 K/UL (150-450) Mean Platelet Volume 6.4 FL (6.5-10.1) Neutrophils (%) (Auto) 58.3 % (45.0-75.0) Lymphocytes (%) (Auto) 32.5 % (20.0-45.0) Monocytes (%) (Auto) 7.1 % (1.0-10.0) Eosinophils (%) (Auto) 0.8 % (0.0-3.0) Basophils (%) (Auto) 1.2 % (0.0-2.0) Sodium Level 140 mEQ/L (135-145) Potassium Level 4.2 mEQ/L (3.4-4.9) Chloride Level 99 mEQ/L (98-107) Carbon Dioxide Level 29 mEQ/L (20-30) Anion Gap 12 (5-15) Blood Urea Nitrogen 11 mg/dL (7-23) Creatinine 0.8 mg/dL (0.7-1.2) Estimat Glomerular Filtration Rate > 60 mL/min (>60) Glucose Level 112 mg/dL (74-106) Calcium Level 9.1 mg/dL (8.6-10.2) Total Bilirubin < 0.2 mg/dL (0.0-1.2) Aspartate Amino Transf (AST/SGOT) 27 U/L (5-40) Alanine Aminotransferase (ALT/SGPT) 16 U/L (3-41) Alkaline Phosphatase 84 U/L (40-129) Total Creatine Kinase 132 U/L (38-174) Creatine Kinase MB 5.0 ng/mL (< 6.7) Creatine Kinase MB Relative Index 3.7 Troponin I < 0.30 ng/mL (<=0.30) Total Protein 7.9 g/dL (6.6-8.7) Albumin 3.4 g/dL (3.5-5.2) Globulin 4.5 g/dL Albumin/Globulin Ratio 0.7 (1.0-2.7) EKG Diagnostic Results Rate: bradycardiac - 47BPM Rhythm: NSR ST Segments: no acute changes ASA given to the pt in ED: No PA Scribe Text interpreted by Dr. Luna Last Vital Signs Date Time Temp Pulse Resp B/P Pulse Ox O2 Delivery O2 Flow Rate FiO2 05/31/16 15:21 98.2 48 16 129/79 98 Room Air Disposition: ADMITTED INPATIENT Condition: Stable Jael Hermosillo May 31, 2016 15:34
[2016-05-31 16:32] LABS: BASOPHILS % (AUTO) 1.2 % (0.0-2.0); EOSINOPHILS % (AUTO) 0.8 % (0.0-3.0); LYMPHOCYTES % (AUTO) 32.5 % (20.0-45.0); MEAN CORPUSCULAR HEMOGLOBIN 29.3 PG (27.0-31.0); MEAN CORPUSCULAR HGB CONC 31.1 G/DL (32.0-36.0); MEAN CORPUSCULAR VOLUME 94 FL (80-99); MEAN PLATELET VOLUME 6.4 FL (6.5-10.1); MONOCYTES % (AUTO) 7.1 % (1.0-10.0); NEUTROPHILS % (AUTO) 58.3 % (45.0-75.0); PLATELET COUNT 256 K/UL (150-450); RED BLOOD COUNT 3.61 M/UL (4.70-6.10); RED CELL DISTRIBUTION WIDTH 13.5 % (11.6-14.8); WHITE BLOOD COUNT 4.9 K/UL (4.8-10.8)
[2016-05-31 17:02] LABS: ALANINE AMINOTRANSFERASE 16 U/L (3-41); ASPARTATE AMINO TRANSFERASE 27 U/L (5-40); CALCIUM 9.1 mg/dL (8.6-10.2); CARBON DIOXIDE 29 mEQ/L (20-30); CREATININE 0.8 mg/dL (0.7-1.2); GLOMERULAR FILTRATION RATE > 60 mL/min (>60); TOTAL PROTEIN 7.9 g/dL (6.6-8.7); TROPONIN I < 0.30 ng/mL (<=0.30)
[2016-05-31 17:03] LABS: ALBUMIN/GLOBULIN RATIO 0.7 (1.0-2.7); ANION GAP 12 (5-15); CHLORIDE 99 mEQ/L (98-107); HEMOLYSIS 9; POTASSIUM 4.2 mEQ/L (3.4-4.9); SODIUM 140 mEQ/L (135-145)
[2016-05-31 17:07] VITALS: BP 128/78
[2016-05-31] MEDS ORDERED: MEROPENEM1 GM IV (19:14)
[2016-05-31] MEDS ORDERED: PANTOPRAZOLE SO40 MG ORAL (19:14)
[2016-05-31 19:15] VITALS: BP 136/83
[2016-05-31] MEDS ORDERED: HEPARIN SO5000 UNIT2 SUBQ (19:15)
[2016-05-31] MEDS ORDERED: METRONIDAZOLE500 MG ORAL (19:15)
[2016-05-31] MEDS ORDERED: TYLENOL EXTRA500 MG ORAL (19:16)
[2016-05-31] MEDS ORDERED: MORPHINE 22 MG/1 ML IV (19:17)
[2016-05-31] MEDS ORDERED: ZANTAC150 MG ORAL (19:18)
[2016-05-31] MEDS ORDERED: DOCUSATE SODIU100 MG ORAL (19:19)
[2016-05-31 20:07] VITALS: BP 150/89
--- NOTE | 2016-05-31 20:52 | Consultation ---
Consult Note Consult Note Cardiology /EP for Dr Larkin full note dictated #[id number] ERICK WILKINS May 31, 2016 20:52
[2016-05-31] MEDS ORDERED: Acetaminophen 500mg (ES) tab ORAL PRN (21:30)
[2016-05-31] MEDS ORDERED: Norco 5mg/325mg tab ORAL PRN (21:30)
[2016-05-31] MEDS ORDERED: Zosyn 2.25gm inj IV ONE (22:00)
[2016-05-31] MEDS ORDERED: Zosyn 2.25 gm in D5W 55ml IV ONE (22:00)
[2016-05-31] MEDS ORDERED: Vancomycin 1 GM in D5W 275 ML IVPB ONE (22:30)
[2016-06-01] VITALS: BP 103/61
[2016-06-01] MEDS ORDERED: D5NS 1,000 ML IV SCH (02:00)
[2016-06-01 04:00] VITALS: BP 127/72
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
--- NOTE | 2016-06-01 08:03 | History & Physical ---
History and Physical History & Physicial seen and examined. Dictation # [id number] Afshin Saeed MD Jun 01, 2016 08:03
[2016-06-01 08:05] VITALS: BP 114/63
--- NOTE | 2016-06-01 08:07 | General Progress Note ---
Assessment/Plan Status: stable Assessment/Plan 1- Acute Pancreatitis 2- LLL pulmonary infiltrate, no evidence of active infection for now 3- sinus Yasmani cardia 4- Poly Subsance Abuse- History of Plan: Psych GI Cardiology services are consulted Subjective Constitutional: Reports: no symptoms HEENT: Reports: no symptoms Gastrointestinal/Abdominal: Reports: abdominal pain, nausea Allergies: Coded Allergies: No Known Allergies (Unverified , 05/14/16) Objective Last 24 Hour Vital Signs Date Time Temp Pulse Resp B/P Pulse Ox O2 Delivery O2 Flow Rate FiO2 06/01/16 04:00 97.3 58 16 127/72 100 Room Air 06/01/16 03:36 43 06/01/16 00:00 97.3 56 20 103/61 99 Room Air 05/31/16 23:30 55 05/31/16 20:07 97.2 57 20 150/89 99 Room Air 05/31/16 19:45 57 05/31/16 19:15 45 16 136/83 98 Room Air 05/31/16 19:12 98.2 43 16 119/64 98 Room Air 05/31/16 17:07 53 16 128/78 98 Room Air 05/31/16 15:21 98.2 48 16 129/79 98 Room Air Intake and Output 05/31/16 06/01/16 19:00 07:00 Intake Total 0 ml 1420 ml Balance 0 ml 1420 ml Intake Oral 0 ml 260 ml IV Total 1160 ml # Voids 3 Laboratory Tests 05/31/16 16:05: White Blood Count 4.9, Red Blood Count 3.61L, Hemoglobin 10.6L, Hematocrit 34.0L , Mean Corpuscular Volume 94, Mean Corpuscular Hemoglobin 29.3, Mean Corpuscular Hemoglobin Concent 31.1L, Red Cell Distribution Width 13.5, Platelet Count 256, Mean Platelet Volume 6.4L, Neutrophils (%) (Auto) 58.3, Lymphocytes (%) (Auto) 32.5, Monocytes (%) (Auto) 7.1, Eosinophils (%) (Auto) 0.8, Basophils (%) (Auto) 1.2, Sodium Level 140, Potassium Level 4.2, Chloride Level 99, Carbon Dioxide Level 29, Anion Gap 12, Blood Urea Nitrogen 11, Creatinine 0.8, Estimat Glomerular Filtration Rate > 60, Glucose Level 112H, Calcium Level 9.1, Total Bilirubin < 0.2, Aspartate Amino Transf (AST/SGOT) 27, Alanine Aminotransferase (ALT/SGPT) 16, Alkaline Phosphatase 84, Total Creatine Kinase 132, Creatine Kinase MB 5.0, Creatine Kinase MB Relative Index 3.7, Troponin I < 0.30, Total Protein 7.9, Albumin 3.4L, Globulin 4.5, Albumin/ Globulin Ratio 0.7L 05/31/16 21:30: Urine Opiates Screen Negative, Urine Barbiturates Screen Negative, Phencyclidine (PCP) Screen Negative, Urine Amphetamines Screen Negative, Urine Benzodiazepines Screen Negative, Urine Cocaine Screen Negative, Urine Marijuana (THC) Screen Negative Height (Feet): 6 Height (Inches): 1.00 Weight (Pounds): 146 General Appearance: no apparent distress EENT: PERRL/EOMI Neck: supple Cardiovascular: normal rate Respiratory/Chest: lungs clear, rhonchi - bilaterally Abdomen: guarding, other - mid abdomen tenderness Extremities: non-tender Neurologic: director account management II-XII grossly normal Afshin Saeed MD Jun 01, 2016 08:07
[2016-06-01 08:34] LABS: BASOPHILS % (AUTO) 1.2 % (0.0-2.0); EOSINOPHILS % (AUTO) 1.2 % (0.0-3.0); LYMPHOCYTES % (AUTO) 37.7 % (20.0-45.0); MEAN CORPUSCULAR HEMOGLOBIN 29.9 PG (27.0-31.0); MEAN CORPUSCULAR HGB CONC 31.9 G/DL (32.0-36.0); MEAN CORPUSCULAR VOLUME 94 FL (80-99); MEAN PLATELET VOLUME 6.8 FL (6.5-10.1); MONOCYTES % (AUTO) 8.4 % (1.0-10.0); NEUTROPHILS % (AUTO) 51.5 % (45.0-75.0); PLATELET COUNT 246 K/UL (150-450); RED BLOOD COUNT 3.63 M/UL (4.70-6.10); RED CELL DISTRIBUTION WIDTH 13.6 % (11.6-14.8); WHITE BLOOD COUNT 5.4 K/UL (4.8-10.8)
[2016-06-01] MEDS: Docusate 100mg cap ORAL SCH ×2 (08:40→17:03)
[2016-06-01] MEDS: Heparin 5000 units/ml inj SUBQ SCH ×2 (08:41→22:21)
[2016-06-01 08:43] LABS: TROPONIN I < 0.30 ng/mL (<=0.30)
[2016-06-01 08:56] LABS: ALANINE AMINOTRANSFERASE 13 U/L (3-41); ALBUMIN/GLOBULIN RATIO 0.8 (1.0-2.7); ANION GAP 11 (5-15); ASPARTATE AMINO TRANSFERASE 22 U/L (5-40); CARBON DIOXIDE 30 mEQ/L (20-30); CHLORIDE 101 mEQ/L (98-107); CHOLESTEROL 152 mg/dL (< 200); CHOLESTEROL/HDL RATIO 2.1 (3.3-4.4); CREATININE 0.9 mg/dL (0.7-1.2); GLOMERULAR FILTRATION RATE > 60 mL/min (>60); HEMOLYSIS 13; LDL CHOLESTEROL (CALC.) 65 mg/dL (60-99); POTASSIUM 4.2 mEQ/L (3.4-4.9); SODIUM 142 mEQ/L (135-145); TOTAL PROTEIN 7.3 g/dL (6.6-8.7)
[2016-06-01 09:13] LABS: AMYLASE 223 U/L (10-110); LIPASE 48 U/L (< 60)
[2016-06-01 09:16] LABS: HEMOGLOBIN A1C 5.8 % (< 6.0)
--- NOTE | 2016-06-01 09:48 | Diagnostic Imaging Report ---
Indication: PAIN Technique: One view of the chest Comparison: none Findings: Infiltrate is seen in the left perihilar region the pleural spaces and right lung are clear. Heart size is normal. Aorta is tortuous and calcified. Upper mediastinum is unremarkable. Impression: Left perihilar infiltrate. Per the electronic medical record, this was recognized by the emergency room physician
[2016-06-01 12:00] VITALS: BP 107/68
--- NOTE | 2016-06-01 13:19 | Consultation ---
Consult Note Assessment/Plan [id number] ASSESSMENT: 65 y/o male with: Mild pancreatitis Cxray : ? Infiltrate ( but pt has no cough or SOB ) Normocytic anemia - SP EGD 05/17: gastritis Multilevel lumbar laminectomy and fusion. Status post abdominal plasty involving anterior abdominal wall. EtOH, cocaine abuse Negative HIV NKDA Full Code PLAN: ok to DC off of ABX from ID standpoint ( 05/16 SP IV Merrem, PO Flagyl d# 3 ) Monitor CBC, temperatures Monitor BMP thank you MONTRELL CORREA M.D. Jun 01, 2016 13:19
--- NOTE | 2016-06-01 15:32 | Cardiology Report ---
APPROVED REPORT EKG Measurement Heart [id number] [place] [id number] Sinus bradycardia Otherwise normal ECG
--- NOTE | 2016-06-01 15:46 | GI Initial Consult Note ---
Sabrina Roy N.P. 06/01/16 1546: History of Present Illness General Date patient seen: Jun 01, 2016 Time patient seen: 11:00 Reason for Hospitalization: Generalized Weakness Referring physician: HOWARD TURNER Reason for Consultation: ABDOMINAL PAIN Present Illness HPI 65-year-old male presents emergency department brought by ambulance from custodial facility complaining of intractable vomiting in addition to generalized weakness x4 days. Patient reports that he believes he has had the vomiting x10 days. Patient reports history of pancreatitis denies abdominal pain denies nausea. he denies dizziness, chest pain, recent falls. Patient denies fevers or chills. Denies blood in the vomit denies black tarry stools or blood in the stools . Denies constipation or diarrhea. Denies CP, Palpitations, LOC, AMS, dizziness, Changes in Vision, Sensation, paresthesias, or a sudden severe headache. GI CONSULT: HPI as noted above. GI consulted for abdominal pain/pancreatitis. Pt seen on floor, awake A&Ox4 NAD. Patient was previous admitted here 2 weeks ago where he underwent a EGD with no obvious source of bleeding. Pathology reports returned H Pylori negative. Hx of cocaine use, however, utox negative this admission. Pt presents with anemia of unknown etiology, hypoalbuminemia, and elevated amylase and normal lipase. Pt refused colonoscopy this admission. DATE OF PROCEDURE: 05/17/2016 SURGEON: Tavo Barahona M.D. PROCEDURE: Upper endoscopy with biopsy. INDICATION: 1. Anemia. 2. Stool OB positive. SUMMARY OF FINDINGS: History of gastric bypass with a small gastric pouch without any anastomotic ulceration or any source of upper gastrointestinal bleeding. RECOMMENDATIONS: 1. Followup biopsy results. >> H Pylori negative. 2. The patient had a normocytic anemia. Outpatient colonoscopy 3. Treat for pancreatitis Home Meds Reported Medications Fluoxetine Hcl* (PROZAC*) 20 Mg Capsule, 20 MG ORAL DAILY, CAP 06/02/16 Docusate Sodium* (DOCUSATE SODIUM*) 100 Mg Capsule, 100 MG ORAL TWICE A DAY, CAP 05/31/16 Ranitidine Hcl* (ZANTAC*) 150 Mg Tablet, 150 MG ORAL TWICE A DAY, TAB 05/31/16 Morphine Sulfate* (MORPHINE SULFATE*) 2 Mg/1 Ml Cartridge, 2 MG IV, EA 05/31/16 Acetaminophen* (TYLENOL EXTRA STRENGTH*) 500 Mg Tablet, 650 MG ORAL Q6H Y for Mild Pain/Temp > 100.5, TAB 0 Refills 05/31/16 Heparin Sod (Porcine) (HEPARIN SODIUM*) 5 000/1 Ml Vial, 5000 UNITS SUBQ EVERY 12 HOURS, VIAL 05/31/16 Metronidazole* (FLAGYL*) 500 Mg Tablet, 500 MG ORAL EVERY 8 HOURS, TAB 05/31/16 Meropenem (MEROPENEM) 1 Gm Vial, 1 GM IV, VIAL 05/31/16 Pantoprazole* (PANTOPRAZOLE*) 40 Mg Tablet.dr, 40 MG ORAL DAILY, TAB 05/31/16 Med list reviewed/reconciled: Yes Allergies: Coded Allergies: No Known Allergies (Unverified , 05/14/16) Patient History History Provided By: Patient, Medical Record PMH Narrative Past Medical History: see triage record Past Surgical History: none Pertinent Family History: none Immunizations: UTD Reviewed Nursing Documentation: PMH: Agreed, PSxH: Agreed Nursing Documentation-PMH Hx Cardiac Problems: Yes - pancreatitis, pressure ulcer on the left buttock stage II, hypovolemia Hx Hypertension: Yes Hx Diabetes: No - borderline Hx Cancer: No Hx Gastrointestinal Problems: Yes Hx Neurological Problems: No Social History: Reports: drug use Review of Systems All Other Systems: negative except mentioned in HPI Physical Exam Vital Signs Date Time Temp Pulse Resp B/P Pulse Ox O2 Delivery O2 Flow Rate FiO2 05/31/16 15:21 98.2 48 16 129/79 98 Room Air Sp02 EP Interpretation: reviewed Labs Laboratory Tests Test 05/31/16 16:05 05/31/16 21:30 06/01/16 07:20 White Blood Count 4.9 K/UL (4.8-10.8) 5.4 K/UL (4.8-10.8) Red Blood Count 3.61 M/UL (4.70-6.10) L 3.63 M/UL (4.70-6.10) L Hemoglobin 10.6 G/DL (14.2-18.0) L 10.9 G/DL (14.2-18.0) L Hematocrit 34.0 % (42.0-52.0) L 34.0 % (42.0-52.0) L Mean Corpuscular Volume 94 FL (80-99) 94 FL (80-99) Mean Corpuscular Hemoglobin 29.3 PG (27.0-31.0) 29.9 PG (27.0-31.0) Mean Corpuscular Hemoglobin Concent 31.1 G/DL (32.0-36.0) L 31.9 G/DL (32.0-36.0) L Red Cell Distribution Width 13.5 % (11.6-14.8) 13.6 % (11.6-14.8) Platelet Count 256 K/UL (150-450) 246 K/UL (150-450) Mean Platelet Volume 6.4 FL (6.5-10.1) L 6.8 FL (6.5-10.1) Neutrophils (%) (Auto) 58.3 % (45.0-75.0) 51.5 % (45.0-75.0) Lymphocytes (%) (Auto) 32.5 % (20.0-45.0) 37.7 % (20.0-45.0) Monocytes (%) (Auto) 7.1 % (1.0-10.0) 8.4 % (1.0-10.0) Eosinophils (%) (Auto) 0.8 % (0.0-3.0) 1.2 % (0.0-3.0) Basophils (%) (Auto) 1.2 % (0.0-2.0) 1.2 % (0.0-2.0) Sodium Level 140 mEQ/L (135-145) 142 mEQ/L (135-145) Potassium Level 4.2 mEQ/L (3.4-4.9) 4.2 mEQ/L (3.4-4.9) Chloride Level 99 mEQ/L (98-107) 101 mEQ/L (98-107) Carbon Dioxide Level 29 mEQ/L (20-30) 30 mEQ/L (20-30) Anion Gap 12 (5-15) 11 (5-15) Blood Urea Nitrogen 11 mg/dL (7-23) 10 mg/dL (7-23) Creatinine 0.8 mg/dL (0.7-1.2) 0.9 mg/dL (0.7-1.2) Estimat Glomerular Filtration Rate > 60 mL/min (>60) > 60 mL/min (>60) Glucose Level 112 mg/dL (74-106) H 84 mg/dL (74-106) Calcium Level 9.1 mg/dL (8.6-10.2) 9.0 mg/dL (8.6-10.2) Total Bilirubin < 0.2 mg/dL (0.0-1.2) < 0.2 mg/dL (0.0-1.2) Aspartate Amino Transf (AST/SGOT) 27 U/L (5-40) 22 U/L (5-40) Alanine Aminotransferase (ALT/SGPT) 16 U/L (3-41) 13 U/L (3-41) Alkaline Phosphatase 84 U/L (40-129) 84 U/L (40-129) Total Creatine Kinase 132 U/L (38-174) Creatine Kinase MB 5.0 ng/mL (< 6.7) Creatine Kinase MB Relative Index 3.7 Troponin I < 0.30 ng/mL (<=0.30) < 0.30 ng/mL (<=0.30) Total Protein 7.9 g/dL (6.6-8.7) 7.3 g/dL (6.6-8.7) Albumin 3.4 g/dL (3.5-5.2) L 3.3 g/dL (3.5-5.2) L Globulin 4.5 g/dL 4.0 g/dL Albumin/Globulin Ratio 0.7 (1.0-2.7) L 0.8 (1.0-2.7) L Urine Opiates Screen Negative (NEGATIVE) Urine Barbiturates Screen Negative (NEGATIVE) Phencyclidine (PCP) Screen Negative (NEGATIVE) Urine Amphetamines Screen Negative (NEGATIVE) Urine Benzodiazepines Screen Negative (NEGATIVE) Urine Cocaine Screen Negative (NEGATIVE) Urine Marijuana (THC) Screen Negative (NEGATIVE) Hemoglobin A1c 5.8 % (< 6.0) Triglycerides Level 70 mg/dL (< 150) Cholesterol Level 152 mg/dL (< 200) LDL Cholesterol 65 mg/dL (60-99) HDL Cholesterol 73 mg/dL (> 60) H Cholesterol/HDL Ratio 2.1 (3.3-4.4) L Amylase Level 223 U/L (10-110) H Lipase 48 U/L (< 60) Thyroid Stimulating Hormone (TSH) 1.090 uIU/mL (0.300-4.500) General Appearance: well appearing, no apparent distress, alert, thin Head: normocephalic EENT: normal ENT inspection Neck: supple Respiratory: normal breath sounds, no respiratory distress Cardiovascular: normal rate Gastrointestinal: normal inspection, non tender, soft Rectal: deferred Neurologic: normal inspection, alert, oriented x3, responsive Psychiatric: normal inspection, judgement/insight normal, memory normal Skin: normal inspection, normal color, no rash, warm/dry Lymphatic: normal inspection, no adenopathy Current Medications Current Medications Medications (Trade) Dose Ordered Sig/Ru Route PRN Reason Start Time Stop Time Status Last Admin Dose Admin Acetaminophen (Tylenol) 650 mg Q6H PRN ORAL Mild Pain/Temp > 100.5 05/31/16 21:30 06/30/16 21:29 Acetaminophen/ Hydrocodone Bitart ([place] 5/325) 1 tab Q4H PRN ORAL Moderate Pain (Pain Scale 4-6) 05/31/16 21:30 06/07/16 21:29 Docusate Sodium (Colace) 100 mg TWICE A DAY ORAL 06/01/16 09:00 07/01/16 08:59 06/01/16 08:40 Heparin Sodium (Porcine) (Heparin 5000 units/ml) 5,000 units EVERY 12 HOURS SUBQ 06/01/16 09:00 07/01/16 08:59 06/01/16 08:41 Ondansetron HCl (Zofran) 4 mg Q6H PRN IVP Nausea & Vomiting 05/31/16 21:30 06/30/16 21:29 06/01/16 03:09 Pantoprazole (Protonix) 40 mg ACBREAKFAST ORAL 06/01/16 06:30 07/01/16 06:29 06/01/16 06:04 Ranitidine HCl (Zantac) 150 mg TWICE A DAY ORAL 06/01/16 09:00 07/01/16 08:59 06/01/16 08:40 GI: Plan Problems: (1) Cocaine abuse (2) Pancreatitis (3) Hypoalbuminemia (4) Anemia (5) Elevated CEA (6) Hiatal hernia (7) Severe malnutrition Plan recommend patient to have colonoscopy >> refused at this time manage patient for pancreatitis adv diet as tolerated repeat amylase/lipase OB stool positive on previous admission >> monitor H&H, transfuse prn utox negative elevated CEA >> 4.8 PPI colace fu labs Discussed with Dr. Barahona. Thank you for referring this patient, we will follow. TAOV BARAHONA 06/05/16 0816: History of Present Illness General Reason for Hospitalization: Generalized Weakness Present Illness Home Meds Reported Medications Fluoxetine Hcl* (PROZAC*) 20 Mg Capsule, 20 MG ORAL DAILY, CAP 06/02/16 Docusate Sodium* (DOCUSATE SODIUM*) 100 Mg Capsule, 100 MG ORAL TWICE A DAY, CAP 05/31/16 Ranitidine Hcl* (ZANTAC*) 150 Mg Tablet, 150 MG ORAL TWICE A DAY, TAB 05/31/16 Morphine Sulfate* (MORPHINE SULFATE*) 2 Mg/1 Ml Cartridge, 2 MG IV, EA 05/31/16 Acetaminophen* (TYLENOL EXTRA STRENGTH*) 500 Mg Tablet, 650 MG ORAL Q6H Y for Mild Pain/Temp > 100.5, TAB 0 Refills 05/31/16 Heparin Sod (Porcine) (HEPARIN SODIUM*) 5 000/1 Ml Vial, 5000 UNITS SUBQ EVERY 12 HOURS, VIAL 05/31/16 Metronidazole* (FLAGYL*) 500 Mg Tablet, 500 MG ORAL EVERY 8 HOURS, TAB 05/31/16 Meropenem (MEROPENEM) 1 Gm Vial, 1 GM IV, VIAL 05/31/16 Pantoprazole* (PANTOPRAZOLE*) 40 Mg Tablet.dr, 40 MG ORAL DAILY, TAB 05/31/16 Allergies: Coded Allergies: No Known Allergies (Unverified , 05/14/16) GI: Plan Plan The patient was seen and examined at bedside and all new and available data was reviewed in the patients chart. I agree with the above findings, impression and plan. (Patient seen earlier today. Signature stamp does not reflect patient encounter time.). -Trinity Thorne MDh Naif Gamino Jun 01, 2016 15:46 TAVO BARAHONA Jun 05, 2016 08:16
[2016-06-01 16:00] VITALS: BP 133/82
[2016-06-01] MEDS ORDERED: D5NS 1000ml IV ONE (16:57)
--- NOTE | 2016-06-01 19:07 | History and Physical Report ---
DATE OF ADMISSION: 05/31/2016 vital signs. For the clinical diagnosis of the pancreatitis recurrence. PAST SURGICAL HISTORY: Multiple back surgeries and inguinal surgery. PAST MEDICAL HISTORY: Hypertension, alcoholic pancreatitis, depression, drug abuse, and gastric bypass. ALLERGIES: NKDA. SOCIAL HISTORY: Positive for the alcohol and drug abuse. The patient is currently a resident in the longterm facility. FAMILY HISTORY: Noncontributory. PHYSICAL EXAMINATION: VITAL SIGNS: Blood pressure 120/97, pulse rate is 48, temperature 98.2 degrees, and pulse oximetry 98% on room air. HEAD AND NECK: Atraumatic and normocephalic. CHEST: Clear to auscultation. HEART: S1 and S2. Regular rate and rhythm. ABDOMEN: Soft. No organomegaly. MUSCULOSKELETAL: Emaciation and decreased muscle mass in the extremities. NEUROLOGY: The patient is awake, alert and oriented x3. Depressed mood. LABORATORY AND DIAGNOSTIC DATA: Lab results dated 05/31/2016, sodium 140, potassium 4.2, BUN 11, and creatinine 0.8. AST and ALT normal. Albumin 3.4. WBC 4.5 and hemoglobin 10.6. Urine drug screen is negative. Imaging, pending. ASSESSMENT: 1. Acute on chronic pancreatitis. 2. Chronic pain. 3. Depression/anxiety. 4. Gastritis. 5. Sinus bradycardia. 6. Infiltrate of the lung, atelectasis versus pneumonia with no clinical evidence of active infection. 7. Gastrointestinal and deep vein thrombosis prophylaxis. PLAN OF CARE: We will keep the patient NPO. We will continue the IV fluids. We will monitor the serum amylase and lipase. GI, Dr. Young is notified and consulted. Cardiology, Dr. Larkin as well. Afshin Saeed M.D. DR: MABEL JOB#: [id number] CC:
[2016-06-01 20:00] VITALS: BP 140/75
--- NOTE | 2016-06-01 20:57 | Consultation ---
DATE OF CONSULTATION: 06/01/2016 INFECTIOUS DISEASE CONSULTATION CONSULTING PHYSICIAN: Alvino Thompson M.D. REFERRING PHYSICIAN: Afshin Saeed M.D. REASON FOR CONSULTATION: Evaluation of patient for pancreatitis and abdominal pain and recommendation for possible antibiotic treatment. HISTORY OF PRESENT ILLNESS: The patient is a 65-year-old male with multiple medical problems, who came to the hospital with abdominal pain, nausea, and vomiting. The patient has a history of alcohol and cocaine abuse. However, the patient denies using any recently. The last time one according to him was three weeks ago. The patient has mild increase of lipase. Infectious Disease consultation has been requested for further evaluation of the patient for possibly antibiotic treatment. PAST MEDICAL HISTORY: Significant for, 1. Acute pancreatitis. 2. History of diarrhea recently. 3. History of anemia. 4. History of lumbar laminectomy and fusion. 5. History of abdominal pain. 6. History of alcohol and cocaine abuse. MEDICATIONS: The patient receive one dose of Zosyn in the emergency room. SOCIAL HISTORY: As mentioned above. FAMILY HISTORY: Noncontributory. REVIEW OF SYSTEMS: A 10-point review was done except for what was mentioned was negative. HEENT: No recent change in vision or hearing. Pulmonary: No cough or shortness of breath. Cardiovascular: No chest or palpitations. Gastrointestinal/Abdomen: As mentioned above. Genitourinary: No dysuria. Musculoskeletal: No edema. LABORATORY DATA: White blood cells 5.4, hemoglobin 11, and platelets 246,000. UA unremarkable. BUN 10 and creatinine 0.9. ALT, AST and alkaline phosphatase are unremarkable. Urine tox is negative for opiates and cocaine. Chest x-ray showed left perihilar infiltrate. ASSESSMENT: The patient is a 65-year-old male with multiple medical problems, who has been admitted with significant nausea and vomiting. The patient does not have fever. The patient has normal lipase and amylase is mildly elevated. At this time, it does not appear that the patient will benefit from the treatment in view of lack of leukocyte esterase and fever. PLAN: 1. We will monitor the patient off of antibiotics. 2. Monitor CBC. 3. Monitor BNP. 4. CT of the chest is pending. 5. Based on patient's clinical course and laboratories, we will do further recommendations. Thank you, Dr. Saeed, for allowing me to participate in the care of this patient. I will follow the patient with you during this hospitalization. Alvino Thompson M.D. DR: FLORINA JOB#: [id number] CC:
--- NOTE | 2016-06-01 23:47 | Consultation ---
DATE OF CONSULTATION: CONSULTING PHYSICIAN: Cami Mendez M.D. HISTORY OF PRESENT ILLNESS: The patient is a 65-year-old male with a history of depression and anxiety, who has been presenting with depressed mood, anhedonia, worthlessness, hopelessness, decreased energy, anxiety, poor insight and judgment into his mental condition, and depression. The patient does not endorse any manic or psychotic symptoms. PAST PSYCHIATRIC HISTORY: Significant for depression. No psychiatric hospitalization in the past. No suicide attempt. PAST MEDICAL HISTORY: Includes hypertension, alcoholic pancreatitis, and gastric bypass. ALLERGIES: No known drug allergies. SUBSTANCE ABUSE HISTORY: Significant for alcohol and illicit drug use. SOCIAL HISTORY: The patient resides in a correction. MENTAL STATUS EXAMINATION: Alert and oriented x3. Mood is depressed. Affect is constricted, congruent with mood. Cognition is intact. Insight and judgment is . ASSESSMENT: [place] I Major depressive disorder [place] II Deferred. [place] III Pancreatitis. [place] IV Low. [place] V Global assessment of functioning is 50. PLAN: 1. The patient will be started on fluoxetine 20 mg in the morning. 2. We will continue to follow and readjust the medications. Cami Mendez M.D. DR: ANA ROSA JOB#: [id number] CC:
[2016-06-02] VITALS: BP 135/80
[2016-06-02 04:00] VITALS: BP 131/77
[2016-06-02 07:47] LABS: BASOPHILS % (AUTO) 0.9 % (0.0-2.0); EOSINOPHILS % (AUTO) 1.6 % (0.0-3.0); LYMPHOCYTES % (AUTO) 25.9 % (20.0-45.0); MEAN CORPUSCULAR HEMOGLOBIN 29.6 PG (27.0-31.0); MEAN CORPUSCULAR HGB CONC 31.5 G/DL (32.0-36.0); MEAN CORPUSCULAR VOLUME 94 FL (80-99); MEAN PLATELET VOLUME 6.6 FL (6.5-10.1); MONOCYTES % (AUTO) 6.5 % (1.0-10.0); NEUTROPHILS % (AUTO) 65.2 % (45.0-75.0); PLATELET COUNT 205 K/UL (150-450); RED BLOOD COUNT 3.31 M/UL (4.70-6.10); RED CELL DISTRIBUTION WIDTH 13.7 % (11.6-14.8); WHITE BLOOD COUNT 5.5 K/UL (4.8-10.8)
[2016-06-02 07:55] LABS: AMYLASE 213 U/L (10-110); ANION GAP 11 (5-15); CALCIUM 8.9 mg/dL (8.6-10.2); CARBON DIOXIDE 28 mEQ/L (20-30); CHLORIDE 103 mEQ/L (98-107); CREATININE 0.8 mg/dL (0.7-1.2); GLOMERULAR FILTRATION RATE > 60 mL/min (>60); HEMOLYSIS 4; LIPASE 57 U/L (< 60); MAGNESIUM 1.9 mg/dL (1.7-2.5); PHOSPHORUS 3.3 mg/dL (2.5-4.8); POTASSIUM 4.3 mEQ/L (3.4-4.9); SODIUM 142 mEQ/L (135-145)
[2016-06-02 08:00] VITALS: BP 112/59
--- NOTE | 2016-06-02 08:09 | Cardiology Progress Note ---
Assessment/Plan Status: stable, progressing Status Narrative Mr. Christensen has no current c/o dyspnea, palpitations or chest pain. He has a hx of cocaine and etoh abuse. ECHO report states normal LV systolic function, but reports EF 35-40% - unable to view images on computer. 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 Assessment/Plan Will obtain final report of ECHO. If decreased LV systolic function, suggesting nonischemic cm, then would start low dose shelley inhibitors (lisinopril 2.5 mg daily, and titrate based on bp). Would not use coreg, as resting HR is low. Does not need diuretics, as no pulm congestion/edema. Subjective ROS Limited/Unobtainable: No Subjective Cardiology for Dr. Larkin Mr. Christensen has no c/o dyspnea. Abd pain, n/v have resolved Objective Last 24 Hour Vital Signs Date Time Temp Pulse Resp B/P Pulse Ox O2 Delivery O2 Flow Rate FiO2 06/02/16 08:00 96.8 66 20 112/59 100 Room Air 06/02/16 04:00 97.3 51 20 131/77 97 Room Air 06/02/16 00:00 97.7 52 20 135/80 96 Room Air 06/01/16 20:00 98.1 78 20 140/75 95 Room Air 06/01/16 16:00 97.8 51 20 133/82 97 Room Air 06/01/16 16:00 48 06/01/16 12:00 97.1 48 20 107/68 93 Room Air 06/01/16 12:00 71 06/01/16 08:05 96.6 78 20 114/63 96 Room Air General Appearance: WD/WN, no apparent distress, alert EENT: PERRL/EOMI Neck: supple, no JVD Rhythm: NSR Cardiovascular: normal rate, regular rhythm, no gallop/murmur Respiratory/Chest: lungs clear Abdomen: normal bowel sounds, non tender, soft Extremities: no swelling Intake and Output 06/01/16 06/02/16 19:00 07:00 Intake Total 640 ml 300 ml Output Total 200 ml 600 ml Balance 440 ml -300 ml Intake Oral 320 ml 300 ml IV Total 320 ml Output Urine Total 200 ml 600 ml # Voids 4 Laboratory Tests Test 06/02/16 07:10 White Blood Count 5.5 K/UL (4.8-10.8) Red Blood Count 3.31 M/UL (4.70-6.10) L Hemoglobin 9.8 G/DL (14.2-18.0) L Hematocrit 31.2 % (42.0-52.0) L Mean Corpuscular Volume 94 FL (80-99) Mean Corpuscular Hemoglobin 29.6 PG (27.0-31.0) Mean Corpuscular Hemoglobin Concent 31.5 G/DL (32.0-36.0) L Red Cell Distribution Width 13.7 % (11.6-14.8) Platelet Count 205 K/UL (150-450) Mean Platelet Volume 6.6 FL (6.5-10.1) Neutrophils (%) (Auto) 65.2 % (45.0-75.0) Lymphocytes (%) (Auto) 25.9 % (20.0-45.0) Monocytes (%) (Auto) 6.5 % (1.0-10.0) Eosinophils (%) (Auto) 1.6 % (0.0-3.0) Basophils (%) (Auto) 0.9 % (0.0-2.0) Sodium Level Pending Potassium Level Pending Chloride Level Pending Carbon Dioxide Level Pending Blood Urea Nitrogen Pending Creatinine Pending Estimat Glomerular Filtration Rate Pending Glucose Level Pending Calcium Level Pending Phosphorus Level Pending Magnesium Level Pending Amylase Level Pending Lipase Pending Microbiology Date/Time Source Procedure Growth Status 05/31/16 18:00 Rectum VRE Culture - Final Enterococcus Faecium - Vre Complete ERICK WILKINS Jun 02, 2016 08:09
[2016-06-02] MEDS: Docusate 100mg cap ORAL SCH (08:31)
[2016-06-02] MEDS: Heparin 5000 units/ml inj SUBQ SCH (08:35)
--- NOTE | 2016-06-02 08:54 | General Progress Note ---
Assessment/Plan Status: stable Assessment/Plan 1- Acute Pancreatitis- Resolved 2- LLL pulmonary infiltrate, no evidence of active infection for now 3- sinus Yasmani cardia- ischemic?! 4- Poly Subsance Abuse- History of 5- Depression Major Plan: medically stable. ok to follow as outpatient Subjective ROS Limited/Unobtainable: No Constitutional: Reports: malaise, no symptoms, weakness HEENT: Reports: no symptoms Cardiovascular: Reports: no symptoms Respiratory: Reports: no symptoms Allergies: Coded Allergies: No Known Allergies (Unverified , 05/14/16) Objective Last 24 Hour Vital Signs Date Time Temp Pulse Resp B/P Pulse Ox O2 Delivery O2 Flow Rate FiO2 06/02/16 08:00 96.8 66 20 112/59 100 Room Air 06/02/16 04:00 97.3 51 20 131/77 97 Room Air 06/02/16 00:00 97.7 52 20 135/80 96 Room Air 06/01/16 20:00 98.1 78 20 140/75 95 Room Air 06/01/16 16:00 97.8 51 20 133/82 97 Room Air 06/01/16 16:00 48 06/01/16 12:00 97.1 48 20 107/68 93 Room Air 06/01/16 12:00 71 Intake and Output 06/01/16 06/02/16 19:00 07:00 Intake Total 640 ml 300 ml Output Total 200 ml 600 ml Balance 440 ml -300 ml Intake Oral 320 ml 300 ml IV Total 320 ml Output Urine Total 200 ml 600 ml # Voids 4 Laboratory Tests 06/02/16 07:10: White Blood Count 5.5, Red Blood Count 3.31L, Hemoglobin 9.8L, Hematocrit 31.2L , Mean Corpuscular Volume 94, Mean Corpuscular Hemoglobin 29.6, Mean Corpuscular Hemoglobin Concent 31.5L, Red Cell Distribution Width 13.7, Platelet Count 205, Mean Platelet Volume 6.6, Neutrophils (%) (Auto) 65.2, Lymphocytes (%) (Auto) 25.9, Monocytes (%) (Auto) 6.5, Eosinophils (%) (Auto) 1.6, Basophils (%) (Auto) 0.9, Sodium Level 142, Potassium Level 4.3, Chloride Level 103, Carbon Dioxide Level 28, Anion Gap 11, Blood Urea Nitrogen 11, Creatinine 0.8, Estimat Glomerular Filtration Rate > 60, Glucose Level 143H, Calcium Level 8.9, Phosphorus Level 3.3, Magnesium Level 1.9, Amylase Level 213H , Lipase 57 Height (Feet): 6 Height (Inches): 1.00 Weight (Pounds): 146 General Appearance: no apparent distress EENT: PERRL/EOMI Neck: supple Cardiovascular: bradycardia Respiratory/Chest: lungs clear Abdomen: soft Extremities: non-tender 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
[2016-06-02] MEDS ORDERED: Lisinopril 2.5mg tab ORAL SCH (09:00)
--- NOTE | 2016-06-02 10:01 | GI Progress Note ---
Assessment/Plan Problems: (1) Severe malnutrition ICD Codes: E43 - Unspecified severe protein-calorie malnutrition SNOMED: 22818653 (2) Elevated CEA ICD Codes: R97.0 - Elevated carcinoembryonic antigen [CEA] SNOMED: 17070683, 385008263 (3) Hypoalbuminemia ICD Codes: E88.09 - Other disorders of plasma-protein metabolism, not elsewhere classified SNOMED: 380036627 (4) Pancreatitis ICD Codes: K85.90 - Acute pancreatitis without necrosis or infection, unspecified SNOMED: 32825496 (5) Anemia ICD Codes: D64.9 - Anemia, unspecified SNOMED: 439566189 Qualifiers: Qualified Codes: D64.9 - Anemia, unspecified (6) Occult blood positive stool ICD Codes: R19.5 - Other fecal abnormalities SNOMED: 93568527, 562792904 Status: stable Status Narrative Discussed with Dr. Young. Assessment/Plan ok for DC per GI standpoint recommend patient to have colonoscopy >> refused at this time manage patient for pancreatitis >> pt is asymptomatic despite elevated amylase adv to cardiac diet OB stool positive on previous admission >> monitor H&H, transfuse prn utox negative elevated CEA >> 4.8 PPI colace fu labs outpatient GI procedures Subjective Gastrointestinal/Abdominal: Reports: no symptoms Subjective denies any symptoms wishes to go home Objective Last 24 Hour Vital Signs Date Time Temp Pulse Resp B/P Pulse Ox O2 Delivery O2 Flow Rate FiO2 06/02/16 08:00 96.8 66 20 112/59 100 Room Air 06/02/16 04:00 97.3 51 20 131/77 97 Room Air 06/02/16 00:00 97.7 52 20 135/80 96 Room Air 06/01/16 20:00 98.1 78 20 140/75 95 Room Air 06/01/16 16:00 97.8 51 20 133/82 97 Room Air 06/01/16 16:00 48 06/01/16 12:00 97.1 48 20 107/68 93 Room Air 06/01/16 12:00 71 Intake and Output 06/01/16 06/02/16 19:00 07:00 Intake Total 640 ml 300 ml Output Total 200 ml 600 ml Balance 440 ml -300 ml Intake Oral 320 ml 300 ml IV Total 320 ml Output Urine Total 200 ml 600 ml # Voids 4 Laboratory Tests Test 06/02/16 07:10 White Blood Count 5.5 K/UL (4.8-10.8) Red Blood Count 3.31 M/UL (4.70-6.10) L Hemoglobin 9.8 G/DL (14.2-18.0) L Hematocrit 31.2 % (42.0-52.0) L Mean Corpuscular Volume 94 FL (80-99) Mean Corpuscular Hemoglobin 29.6 PG (27.0-31.0) Mean Corpuscular Hemoglobin Concent 31.5 G/DL (32.0-36.0) L Red Cell Distribution Width 13.7 % (11.6-14.8) Platelet Count 205 K/UL (150-450) Mean Platelet Volume 6.6 FL (6.5-10.1) Neutrophils (%) (Auto) 65.2 % (45.0-75.0) Lymphocytes (%) (Auto) 25.9 % (20.0-45.0) Monocytes (%) (Auto) 6.5 % (1.0-10.0) Eosinophils (%) (Auto) 1.6 % (0.0-3.0) Basophils (%) (Auto) 0.9 % (0.0-2.0) Sodium Level 142 mEQ/L (135-145) Potassium Level 4.3 mEQ/L (3.4-4.9) Chloride Level 103 mEQ/L (98-107) Carbon Dioxide Level 28 mEQ/L (20-30) Anion Gap 11 (5-15) Blood Urea Nitrogen 11 mg/dL (7-23) Creatinine 0.8 mg/dL (0.7-1.2) Estimat Glomerular Filtration Rate > 60 mL/min (>60) Glucose Level 143 mg/dL (74-106) H Calcium Level 8.9 mg/dL (8.6-10.2) Phosphorus Level 3.3 mg/dL (2.5-4.8) Magnesium Level 1.9 mg/dL (1.7-2.5) Amylase Level 213 U/L (10-110) H Lipase 57 U/L (< 60) Height (Feet): 6 Height (Inches): 1.00 Weight (Pounds): 146 General Appearance: no apparent distress, alert, thin Cardiovascular: normal rate Respiratory/Chest: normal breath sounds, no respiratory distress Abdominal Exam: normal bowel sounds, non tender, soft Extremities: normal range of motion Sabrina Roy N.P. Jun 02, 2016 10:01
--- NOTE | 2016-06-02 10:03 | Diagnostic Imaging Report ---
Clinical Indication: Chest pain Technique: Spiral acquisitions obtained through the chest. No IV contrast utilized, referring physician request. Multiplanar reconstructions generated. Total dose length product by 96 mGycm. CTDIvol(s) 14 mGy Comparison: Chest radiograph of earlier the same day Findings:Lungs are diffusely hyperinflated. Small irregular parenchymal opacity is seen in the inferior right upper lobe, images 34 and 33 of series 5. Small subpleural nodular opacities are seen posterior and superior segment of the right lower lobe. Large area of consolidation with air bronchograms is seen occupying much of the posterior right lower lobe, extending well into the superior segment. This corresponds to the infiltrate described on recent chest radiograph. This is to some extent visible on the higher cuts the abdomen pelvis CT of 05/15/16. There is some atelectasis or scarring within the left lung base and left posterior medial costophrenic sulcus. No effusions. No congestion. The heart size is normal. No pericardial effusion. No gross mediastinal or hilar mass or adenopathy. No axillary or chest wall mass or adenopathy, although there are prominent axillary nodes bilaterally. The mid esophagus is mildly dilated with gas and fluid. There is wall thickening of the distal esophagus, and there are extensive surgical clips in the region of the gastroesophageal junction. The appearance of this area is similar to the prior exam. There is diffuse edema of the mediastinal and subcutaneous fat. The included upper abdominal anatomy is unremarkable for the presence of anterior hernia mesh anchors. The bones demonstrate fairly extensive degenerative thoracic spondylosis. Surgical fusion hardware is seen in the lumbar spine. Impression: Extensive consolidation of the posterior-superior left lower lobe. Findings are most likely due to infectious/inflammatory process. However, the possibility of neoplastic etiology should also be considered. Correlation with clinical findings is recommended. Irregular opacity in the inferior right upper lobe. This could represent an area of postinflammatory change or neoplasm Diffuse hyperinflation, consistent with COPD changes Diffuse edema of the subcutaneous and mediastinal fat. Mild esophageal distention. Evidence of distal gastroesophageal surgery. Correlate with clinical and surgical history Other postsurgical changes of the upper abdomen as described The CT scanner at [facility] is accredited by the [employer] and the scans are performed using protocols designed to limit radiation exposure to as low as reasonably achievable to attain images of sufficient resolution adequate for diagnostic evaluation.
--- NOTE | 2016-06-02 10:23 | Infectious Diseases Prog Note ---
Assessment/Plan Assessment/Plan ASSESSMENT: 65 y/o male with: Mild pancreatitis Cxray : ? Infiltrate ( but pt has no cough or SOB ) CT: Extensive consolidation of the posterior-superior left lower lobe. and Irregular opacity in the inferior right upper lobe ( finding seen in CT 05/15/16 , ) probable malignancy Normocytic anemia - SP EGD 05/17: gastritis Multilevel lumbar laminectomy and fusion. Status post abdominal plasty involving anterior abdominal wall. EtOH, cocaine abuse Negative HIV NKDA Full Code PLAN: ok to DC off of ABX from ID standpoint ( 05/16 SP IV Merrem, PO Flagyl d# 3 ) Monitor CBC, temperatures Monitor BMP Rec pul eval for CT findings Subjective Constitutional: Denies: anorexia, chills, drenching sweats, fatigue, fever, no symptoms, other Respiratory: Denies: dry cough, no symptoms, other, productive cough, shortness of breath Allergies: Coded Allergies: No Known Allergies (Unverified , 05/14/16) Objective Vital Signs Last 24 Hour Vital Signs Date Time Temp Pulse Resp B/P Pulse Ox O2 Delivery O2 Flow Rate FiO2 06/02/16 08:00 96.8 66 20 112/59 100 Room Air 06/02/16 04:00 97.3 51 20 131/77 97 Room Air 06/02/16 00:00 97.7 52 20 135/80 96 Room Air 06/01/16 20:00 98.1 78 20 140/75 95 Room Air 06/01/16 16:00 97.8 51 20 133/82 97 Room Air 06/01/16 16:00 48 06/01/16 12:00 97.1 48 20 107/68 93 Room Air 06/01/16 12:00 71 Height (Feet): 6 Height (Inches): 1.00 Weight (Pounds): 146 HEENT: atraumatic Respiratory/Chest: normal breath sounds Cardiovascular: regular rhythm Abdomen: soft, non tender Microbiology Date/Time Source Procedure Growth Status 05/31/16 18:00 Rectum VRE Culture - Final Enterococcus Faecium - Vre Complete Laboratory Tests Test 06/02/16 07:10 White Blood Count 5.5 K/UL (4.8-10.8) Red Blood Count 3.31 M/UL (4.70-6.10) L Hemoglobin 9.8 G/DL (14.2-18.0) L Hematocrit 31.2 % (42.0-52.0) L Mean Corpuscular Volume 94 FL (80-99) Mean Corpuscular Hemoglobin 29.6 PG (27.0-31.0) Mean Corpuscular Hemoglobin Concent 31.5 G/DL (32.0-36.0) L Red Cell Distribution Width 13.7 % (11.6-14.8) Platelet Count 205 K/UL (150-450) Mean Platelet Volume 6.6 FL (6.5-10.1) Neutrophils (%) (Auto) 65.2 % (45.0-75.0) Lymphocytes (%) (Auto) 25.9 % (20.0-45.0) Monocytes (%) (Auto) 6.5 % (1.0-10.0) Eosinophils (%) (Auto) 1.6 % (0.0-3.0) Basophils (%) (Auto) 0.9 % (0.0-2.0) Sodium Level 142 mEQ/L (135-145) Potassium Level 4.3 mEQ/L (3.4-4.9) Chloride Level 103 mEQ/L (98-107) Carbon Dioxide Level 28 mEQ/L (20-30) Anion Gap 11 (5-15) Blood Urea Nitrogen 11 mg/dL (7-23) Creatinine 0.8 mg/dL (0.7-1.2) Estimat Glomerular Filtration Rate > 60 mL/min (>60) Glucose Level 143 mg/dL (74-106) H Calcium Level 8.9 mg/dL (8.6-10.2) Phosphorus Level 3.3 mg/dL (2.5-4.8) Magnesium Level 1.9 mg/dL (1.7-2.5) Amylase Level 213 U/L (10-110) H Lipase 57 U/L (< 60) Current Medications Medications (Trade) Dose Ordered Sig/Ru Route PRN Reason Start Time Stop Time Status Last Admin Dose Admin Acetaminophen (Tylenol) 650 mg Q6H PRN ORAL Mild Pain/Temp > 100.5 05/31/16 21:30 06/30/16 21:29 Acetaminophen/ Hydrocodone Bitart ([place] 5/325) 1 tab Q4H PRN ORAL Moderate Pain (Pain Scale 4-6) 05/31/16 21:30 06/07/16 21:29 Docusate Sodium (Colace) 100 mg TWICE A DAY ORAL 06/01/16 09:00 07/01/16 08:59 06/02/16 08:31 Fluoxetine HCl (PROzac) 20 mg DAILY ORAL 06/02/16 09:00 07/02/16 08:59 06/02/16 08:32 Heparin Sodium (Porcine) (Heparin 5000 units/ml) 5,000 units EVERY 12 HOURS SUBQ 06/01/16 09:00 07/01/16 08:59 06/02/16 08:35 Ondansetron HCl (Zofran) 4 mg Q6H PRN IVP Nausea & Vomiting 05/31/16 21:30 06/30/16 21:29 06/01/16 03:09 Pantoprazole (Protonix) 40 mg ACBREAKFAST ORAL 06/01/16 06:30 07/01/16 06:29 06/02/16 06:20 Ranitidine HCl (Zantac) 150 mg TWICE A DAY ORAL 06/01/16 09:00 07/01/16 08:59 06/02/16 08:32 MONTRELL CORREA M.D. Jun 02, 2016 10:23
[2016-06-02 11:28] VITALS: BP 138/88
--- NOTE | 2016-06-02 13:04 | Cardiology Report ---
APPROVED REPORT EXAM: Two-dimensional and M-mode echocardiogram with Doppler and color Doppler. INDICATION Bradycardia M-Mode DIMENSIONS IVSd1.4 (0.7-1.1cm)Left Atrium (MM)4.6 (1.6-4.0cm) LVDd4.6 (3.5-5.6cm)Aortic Root3.5 (2.0-3.7cm) PWd1.5 (0.7-1.1cm)Aortic Cusp Exc.1.8 (1.5-2.0cm) LVDs3.3 (2.5-4.0cm) PWs1.7 cm Mild global LV hypokinesis. Left ventricular ejection fraction estimated to be 40-45%. Mild left ventricular hypertrophy. Anterior Echo-free space, may be due to pericardial fat or effusion. No evidence of pericardial effusion. Mild left ventricular enlargement. All other cardiac chamber sizes are within normal limits. Mild focal aortic valve sclerosis with adequate cusp excursion. Mildly thickened mitral valve leaflets with normal excursion. Mild mitral annulus and aortic root calcification. Pulmonic valve visualized. Normal tricuspid valve structure. IVC at normal size with physiologic collapse. A color flow and spectral Doppler study was performed and revealed: No aortic regurgitation. Trace mitral regurgitation. Mitral diastolic velocities suggest reduced left ventricular relaxation (Grade I). Trace tricuspid regurgitation. Tricuspid systolic velocities suggests peak right ventricular systolic pressure of 16 mmHg. Trace pulmonic regurgitation present.
[2016-06-02 16:00] VITALS: BP 131/74
[2016-06-02] MEDS ORDERED: PROZAC20 MG ORAL (16:30)
--- NOTE | 2016-06-05 12:01 | Discharge Summary ---
Discharge Summary Hospital Course Date of Admission May 31, 2016 at 18:00 Date of Discharge Jun 02, 2016 at 20:30 Admitting Diagnosis weakness, dehydration HPI Jaron Christensen is a 65 year old male who was admitted on May 31, 2016 at 18:00 for Weakness, Dehydration Hospital Course dc summary dictated #[id number] Discharge Medications Continued Medications: Acetaminophen* (Tylenol Extra Strength*) 500 Mg Tablet 650 MG ORAL Q6H PRN for Mild Pain/Temp > 100.5, TAB 0 Refills Docusate Sodium* (Docusate Sodium*) 100 Mg Capsule 100 MG ORAL TWICE A DAY, CAP Fluoxetine Hcl* (Prozac*) 20 Mg Capsule 20 MG ORAL DAILY, CAP Pantoprazole* (Pantoprazole*) 40 Mg Tablet.dr 40 MG ORAL DAILY, TAB Ranitidine Hcl* (Zantac*) 150 Mg Tablet 150 MG ORAL TWICE A DAY, TAB Discharge Condition Upon Discharge: stable Discharge Disposition Patient was discharged to SNF/Subacute Facility(03) Discharge Diagnoses: Discharge Instructions Discharge Instructions Special Instructions I have been assigned to complete a D/C Summary on this account. I was not involved in the patient management Torie Conner NP (Vanchtein) Jun 05, 2016 12:01
--- NOTE | 2016-06-06 05:17 | Discharge Summary 2 SIG ---
DATE OF ADMISSION: 05/31/2016 DATE OF DISCHARGE: 06/02/2016 ADMITTING DIAGNOSES: 1. Intractable vomiting. 2. Anemia. 3. Pneumonia. 4. Bradycardia. REASON FOR ADMISSION: 65-year-old male was brought from the senior care facility, where he resides, complaining of intractable vomiting and generalized weakness for four days. The patient stated that he vomited for 10 days. He reported history of pancreatitis, however, at that time denied abdominal pain and nausea, just vomiting. He also denied dizziness, chest pain, shortness of breath, palpitations. No fevers. No chills. Denied hematemesis, hematochezia, or melena. No constipation. No diarrhea. Denies blackouts, syncope. In the emergency room, the patient was found to be bradycardic, heart rate - 48. EKG revealed sinus bradycardia. No ST changes. No ectopy. The patient was afebrile. No leukocytosis. Pulse oximetry on room air 98%. Blood pressure was stable. Found low hemoglobin and hematocrit consistent with anemia. Chest x-ray revealed left perihilar infiltrate. The patient was given in the emergency room one liter of normal saline bolus, given antiemetic -Zofran 4 mg and started on empiric antibiotic vancomycin and Zosyn and transferred to telemetry floor for further management. ADMITTING DIAGNOSIS: 1.Bradycardia 2.Possible Pneumonia 3.Anemia HOSPITAL STAY: The patient was admitted to telemetry floor. Cardiology consult was requested. Echocardiogram revealed ejection fraction 35 to 40%. Right ventricular systolic pressure of 16%. The patient with a known history of cocaine abuse and alcohol abuse. Urine toxicology screen was negative. Troponin x2 was negative. CK and CK-MB were negative. Lipid panel was stable. TSH was within normal limits. Per Cardiology, the patient has cocaine-induced cardiomyopathy. The patient was hemodynamically stable. No evidence of CHF exacerbation. He has chronic systolic heart failure. Infectious Diseases doctor followed the patient. The patient had empiric antibiotic. CT of the chest was followed up and it revealed extensive consolidation of the posterior superior left lower lobe. Findings are most likely due to infectious/inflammatory process, however, possibility of neoplastic etiologies would be considered. Irregular opacity in the inferior right upper lobe, could represent area of postinflammatory changes or neoplasm. Diffuse hyperinflation consistent with COPD. Infectious Diseases doctor recommended to stop antibiotics. The patient had no leukocytosis, no fever, no cough. GI doctor was involved in the care of this patient. The patient had undergone EGD, which revealed gastritis. Lipase is within normal limits. Amylase is elevated. The patient, however, remained asymptomatic despite elevated amylase. CEA elevated at 4.8. GI prophylaxis provided. Bowel regimen instituted. The patient was counseled to continue abstinence from alcohol and cocaine abuse. The patient was offered colonoscopy to be done in the hospital; however, he declined the procedure at this time. Recommended outpatient colonoscopy for elevated CEA. In terms of the anemia, hemoglobin and hematocrit were closely monitored. The patient remained at the baseline. No significant trend down. Closely monitor hemoglobin and hematocrit in the senior care facility. In terms of the malnutrition, the patient had a dietary evaluation. Implemented diet with dietary supplements, and to be continued at the senior care facility, The patient was seen by psychiatrist. Psychiatrist started the patient on Prozac 20 mg in the morning. The patient needs close monitoring while in the senior care facility. Since the patient has COPD and a history of former smoking, therefore he has a higher risk for possible malignancy. Recommend to repeat CT of the chest in one month. The patient was also recommended to have outpatient GI procedure. The patient was stable for discharge from all consultants and was sent to group home. DISCHARGE MEDICATIONS: See medication reconciliation list. DISCHARGE DIAGNOSES: 1. Left lobe pneumonia, s/p treatment 2. Right upper lobe opacity - inflammatory versus neoplastic ( repeat CT chest in 1 month ). 3. Asymptomatic bradycardia. 4. Cocaine-induced cardiomyopathy. 5. Chronic systolic heart failure. 6. Status post esophagogastroduodenoscopy with findings of gastritis, 7. Possible chronic pancreatitis, asymptomatic. 8. Elevated CEA. 9 Alcohol and cocaine abuse. 10. Severe protein calorie malnutrition. 11. Major depression. DISCHARGE INSTRUCTION: The patient discharged to senior care facility. Follow up with the medical doctor in the facility. Recommended outpatient GI procedure and repeat CT chest in two to three months. Afshin Saeed M.D. I have been assigned to dictate discharge summary on this account and I was not involved in the patient's management. Torie Conner N.P. ([place]anchtein) DR: DORETHA JOB#: [id number] CC: LAURA
--- NOTE | 2016-06-07 09:30 | Cardiology Report ---
APPROVED REPORT EKG Measurement Heart [id number] Sinus bradycardia Moderate voltage criteria for LVH, may be normal variant Borderline ECG
== END 2016-06-02 20:30 | DRG 438 ==
LOC: EDBD 15:21 → EMR 16:55 → 2E 18:00 → EDBEDREQ 18:28
DX: K85.90 Acute pancreatitis without necrosis or infection, unspecified (principal); J18.9 Pneumonia, unspecified organism; E43 Unspecified severe protein-calorie malnutrition; I42.8 Other cardiomyopathies; I50.22 Chronic systolic (congestive) heart failure; Z68.1 Body mass index [BMI] 19.9 or less, adult; K86.0 Alcohol-induced chronic pancreatitis; I10 Essential (primary) hypertension; K29.70 Gastritis, unspecified, without bleeding; R00.1 Bradycardia, unspecified; G89.29 Other chronic pain; F14.188 Cocaine abuse with other cocaine-induced disorder; R97.0 Elevated carcinoembryonic antigen [CEA]; F32.9 Major depressive disorder, single episode, unspecified; Z98.84 Bariatric surgery status; K44.9 Diaphragmatic hernia without obstruction or gangrene
CPT/HCPCS: 36415; 71010; 71250; 80048; 80053; 80061; 80300; 82150; 82550; 82553; 83036; 83690; 83735; 84100; 84443; 84484; 85025; 87081; 93005; 93306; J2405

== ENCOUNTER 2018-03-26 16:35 | Emergency (ER) | payer MEDICARE, MEDICAID ==
[~2018-03-26] VITALS: Ht 182.9 cm; Wt 77.1 kg
[~2018-03-26 16:35] MED LIST changes: +DOCUSATE SODIU100 MG ORAL; +HEPARIN SO5000 UNIT2 SUBQ; +MEROPENEM1 GM IV; +METRONIDAZOLE500 MG ORAL; +MORPHINE 22 MG/1 ML IV; +PANTOPRAZOLE SO40 MG ORAL; +PROZAC20 MG ORAL; +TYLENOL EXTRA500 MG ORAL; +ZANTAC150 MG ORAL
[2018-03-26] MEDS ORDERED: Morphine Sulfate 2mg/ml Inj IVP ONE (17:00)
[2018-03-26 17:03] LABS: HEMATOCRIT 28.7 % (42.0-52.0); HEMOGLOBIN 9.5 G/DL (14.2-18.0); MEAN CORPUSCULAR VOLUME 85 FL (80-99); PLATELET COUNT 283 K/UL (150-450); RED BLOOD COUNT 3.37 M/UL (4.70-6.10); WHITE BLOOD COUNT 10.7 K/UL (4.8-10.8)
[2018-03-26 17:20] LABS: ANION GAP 10 mmol/L (5-15); BLOOD UREA NITROGEN 15 mg/dL (7-18); CARBON DIOXIDE 25 MMOL/L (21-32); CHLORIDE 103 MMOL/L (98-107); CREATININE 1.2 MG/DL (0.55-1.30); POTASSIUM 3.4 MMOL/L (3.5-5.1); SODIUM 138 MMOL/L (136-145)
[2018-03-26 17:34] LABS: ALANINE AMINOTRANSFERASE 14 U/L (12-78); ALBUMIN/GLOBULIN RATIO 0.5 (1.0-2.7); ALKALINE PHOSPHATASE 133 U/L (46-116); ASPARTATE AMINO TRANSFERASE 18 U/L (15-37); BILIRUBIN,TOTAL 0.2 MG/DL (0.2-1.0); CKMB 2.5 NG/ML (0.0-3.6); CREATINE KINASE 187 U/L (26-308)
[2018-03-26 17:39] VITALS: BP 108/68
--- NOTE | 2018-03-26 18:33 | Emergency Room Report ---
History of Present Illness General Chief Complaint: Chest Pain Source: Patient, Medical Record Present Illness HPI 67-year-old male presents ED for evaluation. Complaining of chest pain 1 day. Comes from alf facility. Pain is sharp, midsternal, 9 out of 10, nonradiating. Also notes shortness of breath. Was given nitroglycerin by EMS 1 with chest pain improved. History of ND. Denies fevers or chills. Denies cough. Denies drug use. No other aggravating relieving factors. Denies any other associated symptoms Allergies: Coded Allergies: CARVEDILOL (Verified Allergy, Unknown, 03/26/18) Patient History Past Medical History: DM, HTN, ND Past Surgical History: none Pertinent Family History: none Social History: Denies: smoking, alcohol use, drug use Immunizations: UTD Reviewed Nursing Documentation: PMH: Agreed; PSxH: Agreed Nursing Documentation-PMH Past Medical History: No History, Except For Hx Cardiac Problems: Yes - ND and AV block, first degree Hx Hypertension: Yes Hx Diabetes: Yes - DM2 Hx Cancer: No Hx Gastrointestinal Problems: Yes History Of Psychiatric Problem: No - left ventricular hypertrophy, left hip joint pain, Hx Neurological Problems: No - Chronic Ulcer of right lower leg, bacterial arthritis of left knee, Review of Systems All Other Systems: negative except mentioned in HPI Physical Exam Vital Signs Date Time Temp Pulse Resp B/P (MAP) Pulse Ox O2 Delivery O2 Flow Rate FiO2 03/26/18 16:37 98.1 90 18 160/90 99 Nasal Cannula 3.0 Sp02 EP Interpretation: reviewed, normal General Appearance: no apparent distress, alert, GCS 15, non-toxic Head: normocephalic, atraumatic Eyes: bilateral eye normal inspection, bilateral eye PERRL ENT: hearing grossly normal, normal pharynx, no angioedema, normal voice Neck: full range of motion, supple/symm/no masses Respiratory: lungs clear, normal breath sounds, speaking full sentences, other - anterior tender Cardiovascular #1: regular rate, rhythm, no edema Cardiovascular #2: 2+ carotid (R), 2+ carotid (L), 2+ radial (R), 2+ radial (L) , 2+ dorsalis pedis (R), 2+ dorsalis pedis (L) Gastrointestinal: normal bowel sounds, non tender, soft, non-distended, no guarding, no rebound Rectal: deferred Genitourinary: normal inspection, no CVA tenderness Musculoskeletal: back normal, gait/station normal, normal range of motion, non- tender Neurologic: alert, oriented x3, responsive, motor strength/tone normal, sensory intact, speech normal Psychiatric: judgement/insight normal, memory normal, mood/affect normal, no suicidal/homicidal ideation Reflexes: 3+ bicep (R), 3+ bicep (L), 3+ tricep (R), 3+ tricep (L), 3+ knee (R) , 3+ knee (L) Skin: normal color, no rash, warm/dry, well hydrated Lymphatic: no adenopathy Medical Decision Making Diagnostic Impression: Primary Impression: ACS (acute coronary syndrome) ER Course Hospital Course 67 yo M presents with ED c/o chest pain Differential diagnoses include: ND/unstable angina, contusion, muscle strain, PTX, rib fracture Clinical course Patient placed on stretcher. on monitoring manager. After initial history and physical I ordered labs, EKG, chest x-ray, morphine labs reviewed- no leukocytosis, hb/hct stable, electrolytes ok, trop negative EKG - 1st degree av block , frequent PVCs, no acute ischemic changes interpreted by me Chest x-ray- no acute process given aspirin. Even significant cardiac history patient should be admitted. Because of insurance patient will be transferred to [facility]. I feel this is a highly complex case requiring extensive working including EKG/Rhythm strip, Xray/CT/US, Blood/urine lab work, repeat exams while in ED, and administration of strong opiates/narcotics for pain control, admission to hospital or close patient follow up. Diagnosis - ACS transferred in serious condition Labs Test 03/26/18 16:45 03/26/18 16:46 Pro-B-Type Natriuretic Peptide 429 pg/mL (0-125) White Blood Count 10.7 K/UL (4.8-10.8) Red Blood Count 3.37 M/UL (4.70-6.10) Hemoglobin 9.5 G/DL (14.2-18.0) Hematocrit 28.7 % (42.0-52.0) Mean Corpuscular Volume 85 FL (80-99) Mean Corpuscular Hemoglobin 28.1 PG (27.0-31.0) Mean Corpuscular Hemoglobin Concent 33.0 G/DL (32.0-36.0) Red Cell Distribution Width 14.0 % (11.6-14.8) Platelet Count 283 K/UL (150-450) Mean Platelet Volume 6.2 FL (6.5-10.1) Neutrophils (%) (Auto) % (45.0-75.0) Lymphocytes (%) (Auto) % (20.0-45.0) Monocytes (%) (Auto) % (1.0-10.0) Eosinophils (%) (Auto) % (0.0-3.0) Basophils (%) (Auto) % (0.0-2.0) Differential Total Cells Counted 100 Neutrophils % (Manual) 65 % (45-75) Lymphocytes % (Manual) 23 % (20-45) Monocytes % (Manual) 7 % (1-10) Eosinophils % (Manual) 2 % (0-3) Basophils % (Manual) 0 % (0-2) Band Neutrophils 3 % (0-8) Platelet Estimate Adequate Platelet Morphology Normal Polychromasia 1+ Hypochromasia 1+ Anisocytosis 1+ Sodium Level 138 MMOL/L (136-145) Potassium Level 3.4 MMOL/L (3.5-5.1) Chloride Level 103 MMOL/L (98-107) Carbon Dioxide Level 25 MMOL/L (21-32) Anion Gap 10 mmol/L (5-15) Blood Urea Nitrogen 15 mg/dL (7-18) Creatinine 1.2 MG/DL (0.55-1.30) Estimat Glomerular Filtration Rate > 60 mL/min (>60) Glucose Level 90 MG/DL (74-106) Calcium Level 9.0 MG/DL (8.5-10.1) Total Bilirubin 0.2 MG/DL (0.2-1.0) Aspartate Amino Transf (AST/SGOT) 18 U/L (15-37) Alanine Aminotransferase (ALT/SGPT) 14 U/L (12-78) Alkaline Phosphatase 133 U/L (46-116) Total Creatine Kinase 187 U/L (26-308) Creatine Kinase MB 2.5 NG/ML (0.0-3.6) Creatine Kinase MB Relative Index 1.3 Troponin I 0.000 ng/mL (0.000-0.056) Total Protein 9.1 G/DL (6.4-8.2) Albumin 3.0 G/DL (3.4-5.0) Globulin 6.1 g/dL Albumin/Globulin Ratio 0.5 (1.0-2.7) EKG Diagnostic Results Rate: normal Rhythm: other - frequent PVCs ST Segments: no acute changes ASA given to the pt in ED: Yes Rhythm Strip Diag. Results EP Interpretation: yes Rhythm: NSR, no ectopy Chest X-Ray Diagnostic Results Chest X-Ray Diagnostic Results : Chest X-Ray Ordered: Yes # of Views/Limited/Complete: 1 View Indication: Chest Pain EP Interpretation: Yes Interpretation: no consolidation, no effusion, no pneumothorax, no acute cardiopulmonary disease Impression: No acute disease Electronically Signed by: Electronically signed by Ham Adams MD Last Vital Signs Date Time Temp Pulse Resp B/P (MAP) Pulse Ox O2 Delivery O2 Flow Rate FiO2 03/26/18 17:39 98.1 64 14 108/68 100 Room Air 03/26/18 16:37 3.0 Status: improved Disposition: XFER SHT-TRM HOSP Condition: Serious Referrals: [facility] (PCP) Ham Adams MD Mar 26, 2018 18:33
[2018-03-26 19:30] VITALS: BP 112/72
[2018-03-26 20:14] VITALS: BP 112/72
--- NOTE | 2018-03-27 14:07 | Diagnostic Imaging Report ---
Indication: Chest pain Technique: One view of the chest Comparison: 05/31/2016 Findings: Previously demonstrated left perihilar infiltrate is no longer evident. Lungs and pleural spaces currently clear. Heart size is normal. Aorta is tortuous. Extensive surgical clips are seen in the region of the gastroesophageal junction. There is spinal fusion hardware noted Impression: No acute process. Findings as noted
== END 2018-03-26 20:00 | disposition short-term general hospital (02) ==
LOC: EDBD 16:35 → EMR 17:06
DX: I24.9 Acute ischemic heart disease, unspecified (principal); Z88.8 Allergy status to other drugs, medicaments and biological substances; E11.9 Type 2 diabetes mellitus without complications; I10 Essential (primary) hypertension; I25.2 Old myocardial infarction; Z86.79 Personal history of other diseases of the circulatory system; Z87.19 Personal history of other diseases of the digestive system
CPT/HCPCS: 36415; 71045; 80053; 82550; 82553; 83880; 84484; 85007; 85025; 93005; 96374; 99284; J2270

== ENCOUNTER 2018-04-29 06:26 | Emergency (ER) | payer MEDICARE, MEDICAID ==
[~2018-04-29] VITALS: Ht 185.4 cm; Wt 64.4 kg
[2018-04-29 06:29] VITALS: BP 123/69
--- NOTE | 2018-04-29 06:38 | Emergency Room Report ---
History of Present Illness General Chief Complaint: General Complaint Source: Patient Present Illness HPI This is a 67-year-old male who said he has no past medical history. He presents with chief complaint weakness. He said he hasn't eaten in a couple days. Denies any nausea vomiting. He called 911 from nearby [place]. He was at a [place] facility 2 days ago for the same thing. No fever chills but no chest pain. Admits to ranking alcohol and using cocaine yesterday. Allergies: Coded Allergies: CARVEDILOL (Verified Allergy, Unknown, 03/26/18) Patient History Past Medical History: see triage record, old chart reviewed Past Surgical History: other Pertinent Family History: none Social History: Reports: smoking, alcohol use, drug use Immunizations: other Reviewed Nursing Documentation: PMH: Agreed; PSxH: Agreed Nursing Documentation-PMH Past Medical History: No Stated History Hx Cardiac Problems: Yes - [place] and AV block, first degree Hx Hypertension: Yes Hx Diabetes: Yes - DM2 Hx Cancer: No Hx Gastrointestinal Problems: Yes Hx Neurological Problems: No - Chronic Ulcer of right lower leg, bacterial arthritis of left knee, Review of Systems Constitutional: Reports: weakness Eye: Denies: eye pain, blurred vision ENT: Denies: ear pain, nose congestion, throat swelling Respiratory: Denies: cough, shortness of breath Cardiovascular: Denies: chest pain, palpitations Gastrointestinal: Denies: abdominal pain, diarrhea, nausea, vomiting Musculoskeletal: Denies: back pain, joint pain Skin: Denies: rash Neurological: Denies: headache, numbness Endocrine: Denies: increased thirst, increased urine Hematologic/Lymphatic: Denies: easy bruising All Other Systems: negative except mentioned in HPI Physical Exam Vital Signs Date Time Temp Pulse Resp B/P (MAP) Pulse Ox O2 Delivery O2 Flow Rate FiO2 04/29/18 06:14 98.4 84 16 123/69 97 Room Air vitals normal Sp02 EP Interpretation: reviewed, normal General Appearance: well appearing, no apparent distress, alert, other - Intoxicated, sleepy Head: normocephalic, atraumatic Eyes: bilateral eye PERRL, bilateral eye EOMI ENT: hearing grossly normal, normal pharynx Neck: full range of motion, supple, no meningismus Respiratory: chest non-tender, lungs clear, normal breath sounds Cardiovascular #1: regular rate, rhythm, no murmur Gastrointestinal: normal bowel sounds, non tender, no mass, no organomegaly, no bruit, non-distended Musculoskeletal: back normal, gait/station normal, normal range of motion Psychiatric: mood/affect normal Skin: warm/dry Medical Decision Making Diagnostic Impression: Primary Impression: Weakness generalized Additional Impressions: Cocaine abuse Alcohol abuse ER Course Patient with generalize weakness. I suspect secondary to drugs and alcohol. Labs sent. X-ray unremarkable. We'll send this patient out to Dr. Adams for final disposition. EKG Diagnostic Results Rate: normal Rhythm: NSR ST Segments: no acute changes Rhythm Strip Diag. Results Rhythm Strip Time: 07:06 EP Interpretation: yes Rate: 80 Rhythm: NSR, no PVC's, no ectopy Chest X-Ray Diagnostic Results Chest X-Ray Diagnostic Results : Chest X-Ray Ordered: Yes # of Views/Limited/Complete: 1 View Indication: Chest Pain EP Interpretation: Yes Interpretation: no consolidation, no effusion, no pneumothorax, no acute cardiopulmonary disease Impression: No acute disease Electronically Signed by: Vinicius Roy MD Last Vital Signs Date Time Temp Pulse Resp B/P (MAP) Pulse Ox O2 Delivery O2 Flow Rate FiO2 04/29/18 06:29 98.4 84 16 123/69 97 Room Air Status: improved Disposition: HOME, SELF-CARE Condition: Stable Vinicius Roy MD Apr 29, 2018 06:38
[2018-04-29 07:09] LABS: APPEARANCE,URINE CLEAR; BILIRUBIN, URINE NEGATIVE (NEGATIVE); GLUCOSE, URINE (UA) NEGATIVE (NEGATIVE); KETONES,URINE NEGATIVE (NEGATIVE); LEUKOCYTE ESTERASE ,URINE 1+ (NEGATIVE); NITRITE,URINE NEGATIVE (NEGATIVE); PH,URINE 5 (4.5-8.0); PROTEIN,URINE 2+ (NEGATIVE); UROBILINOGEN,URINE 1 MG/DL (0.0-1.0)
[2018-04-29 07:15] LABS: ANION GAP 8 mmol/L (5-15); BLOOD UREA NITROGEN 9 mg/dL (7-18); CALCIUM 8.7 MG/DL (8.5-10.1); CARBON DIOXIDE 27 MMOL/L (21-32); CHLORIDE 104 MMOL/L (98-107); SODIUM 139 MMOL/L (136-145)
[2018-04-29 07:17] LABS: BASOPHILS % (AUTO) 0.8 % (0.0-2.0); EOSINOPHILS % (AUTO) 0.6 % (0.0-3.0); HEMATOCRIT 26.9 % (42.0-52.0); HEMOGLOBIN 8.3 G/DL (14.2-18.0); LYMPHOCYTES % (AUTO) 16.8 % (20.0-45.0); MEAN CORPUSCULAR VOLUME 88 FL (80-99); MONOCYTES % (AUTO) 6.9 % (1.0-10.0); NEUTROPHILS % (AUTO) 74.9 % (45.0-75.0); PLATELET COUNT 292 K/UL (150-450); RED BLOOD COUNT 3.06 M/UL (4.70-6.10); RED CELL DISTRIBUTION WIDTH 15.1 % (11.6-14.8); WHITE BLOOD COUNT 7.9 K/UL (4.8-10.8)
[2018-04-29 07:29] LABS: COLOR,URINE YELLOW
--- NOTE | 2018-04-29 08:09 | Emergency Room Report ---
History of Present Illness General Chief Complaint: General Complaint Source: Patient Present Illness Allergies: Coded Allergies: CARVEDILOL (Verified Allergy, Unknown, 03/26/18) Patient History Pertinent Family History: none Social History: Denies: smoking, alcohol use, drug use Immunizations: UTD Reviewed Nursing Documentation: PMH: Agreed; PSxH: Agreed Nursing Documentation-PMH Past Medical History: No Stated History Hx Cardiac Problems: Yes - PA and AV block, first degree Hx Hypertension: Yes Hx Diabetes: Yes - DM2 Hx Cancer: No Hx Gastrointestinal Problems: Yes Hx Neurological Problems: No - Chronic Ulcer of right lower leg, bacterial arthritis of left knee, Physical Exam Vital Signs Date Time Temp Pulse Resp B/P (MAP) Pulse Ox O2 Delivery O2 Flow Rate FiO2 04/29/18 06:14 98.4 84 16 123/69 97 Room Air Medical Decision Making Diagnostic Impression: Primary Impression: Weakness generalized Additional Impressions: Alcohol abuse Cocaine abuse Anemia Qualified Codes: D64.9 - Anemia, unspecified ER Course Hospital Course 67 yo M presents to ED c/o generalized weakness. Clinical course Patient initially seen and evaluated by Dr Roy. Please see his note for full history and physical Labs reviewed-electrolytes okay, no leukocytosis, hemoglobin/hematocrit 8.3/26.9 , tox panel + cocaine On reassessment patient states he is feeling better. I discussed findings with patient. I offered option for admission but patient declined. Requesting alf referral which we provided i. I feel this is a highly complex case requiring extensive working including EKG/Rhythm strip, Xray/CT/US, Blood/urine lab work, repeat exams while in ED, and administration of strong opiates/narcotics for pain control, admission to hospital or close patient follow up. Diagnosis - weakness, alcohol abuse, cocaine abuse, anemia Stable and discharged to home. Followup with PMD. Return to ED if symptoms recur or worsen Labs Test 04/29/18 06:45 White Blood Count 7.9 K/UL (4.8-10.8) Red Blood Count 3.06 M/UL (4.70-6.10) Hemoglobin 8.3 G/DL (14.2-18.0) Hematocrit 26.9 % (42.0-52.0) Mean Corpuscular Volume 88 FL (80-99) Mean Corpuscular Hemoglobin 27.3 PG (27.0-31.0) Mean Corpuscular Hemoglobin Concent 31.0 G/DL (32.0-36.0) Red Cell Distribution Width 15.1 % (11.6-14.8) Platelet Count 292 K/UL (150-450) Mean Platelet Volume 5.2 FL (6.5-10.1) Neutrophils (%) (Auto) 74.9 % (45.0-75.0) Lymphocytes (%) (Auto) 16.8 % (20.0-45.0) Monocytes (%) (Auto) 6.9 % (1.0-10.0) Eosinophils (%) (Auto) 0.6 % (0.0-3.0) Basophils (%) (Auto) 0.8 % (0.0-2.0) Urine Color Yellow Urine Appearance Clear Urine pH 5 (4.5-8.0) Urine Specific [place] 1.025 (1.005-1.035) Urine Protein 2+ (NEGATIVE) Urine Glucose (UA) Negative (NEGATIVE) Urine Ketones Negative (NEGATIVE) Urine Blood Negative (NEGATIVE) Urine Nitrite Negative (NEGATIVE) Urine Bilirubin Negative (NEGATIVE) Urine Urobilinogen 1 MG/DL (0.0-1.0) Urine Leukocyte Esterase 1+ (NEGATIVE) Urine RBC 0 /HPF (0 - 0) Urine WBC 2-4 /HPF (0 - 0) Urine Squamous Epithelial Cells Occasional /LPF Urine Bacteria Occasional /HPF (NONE) Urine Mucus Moderate /LPF (NONE/OCC) Sodium Level 139 MMOL/L (136-145) Potassium Level 4.0 MMOL/L (3.5-5.1) Chloride Level 104 MMOL/L (98-107) Carbon Dioxide Level 27 MMOL/L (21-32) Anion Gap 8 mmol/L (5-15) Blood Urea Nitrogen 9 mg/dL (7-18) Creatinine 1.0 MG/DL (0.55-1.30) Estimat Glomerular Filtration Rate > 60 mL/min (>60) Glucose Level 89 MG/DL (74-106) Calcium Level 8.7 MG/DL (8.5-10.1) Troponin I 0.000 ng/mL (0.000-0.056) Urine Opiates Screen Negative (NEGATIVE) Urine Barbiturates Screen Negative (NEGATIVE) Phencyclidine (PCP) Screen Negative (NEGATIVE) Urine Amphetamines Screen Negative (NEGATIVE) Urine Benzodiazepines Screen Negative (NEGATIVE) Urine Cocaine Screen Positive (NEGATIVE) Urine Marijuana (THC) Screen Negative (NEGATIVE) Serum Alcohol < 3 mg/dL Last Vital Signs Date Time Temp Pulse Resp B/P (MAP) Pulse Ox O2 Delivery O2 Flow Rate FiO2 04/29/18 06:29 98.4 84 16 123/69 97 Room Air Status: improved Disposition: HOME, SELF-CARE Condition: Stable Referrals: [facility] (PCP) Patient Instructions: Substance Use Disorder Ham Adams MD Apr 29, 2018 08:09
[2018-04-29 08:12] VITALS: BP 128/65
--- NOTE | 2018-04-29 11:59 | Diagnostic Imaging Report ---
Indication: Reason For Exam: CP Technique: One view of the chest Comparison: none Findings: No acute infiltrates, effusions, or congestion. Tortuous calcified aorta. Normal heart size. Upper mediastinum unremarkable. Extensive surgical clips are seen in the region of the gastroesophageal junction. Lumbar spine fusion hardware is also incidentally noted. There is no significant interim change Impression: No acute process.
== END 2018-04-29 08:16 | disposition home or self-care (01) ==
LOC: EDBD 06:26 → EMR 06:44
DX: R53.1 Weakness (principal); F10.10 Alcohol abuse, uncomplicated; F14.10 Cocaine abuse, uncomplicated; D64.9 Anemia, unspecified; E11.9 Type 2 diabetes mellitus without complications; I25.2 Old myocardial infarction
CPT/HCPCS: 36415; 71045; 80048; 80307; 81001; 84484; 85025; 99284; G0480; 80329

== ENCOUNTER 2018-11-07 03:25 | Emergency (ER) | payer MEDICARE, MEDICAID ==
[~2018-11-07] VITALS: Ht 182.9 cm; Wt 52.2 kg
--- NOTE | 2018-11-07 03:26 | NUR ---
ED Nurse Note: UNABLE TO COMPLETE MINICOG AT THIS TIME, PT STATES HE IS TOO WEAK AND DOESN'T WANT TO DO IT.
[2018-11-07 03:27] VITALS: BP 115/64
--- NOTE | 2018-11-07 03:31 | NUR ---
ED Nurse Note: Patient was BIBA from the street due to left side body ache. States that he had a stroke. Patient presented resstless, anxious. AAO x3, VSS at thios time, pt has skin issues on his lower extremities.
--- NOTE | 2018-11-07 03:35 | NUR ---
ED Nurse Note: Patient refused to do Mini-Cog, states that he is so weak.
--- NOTE | 2018-11-07 03:41 | Emergency Room Report ---
History of Present Illness General Chief Complaint: Pain Source: Patient Present Illness HPI The patient got off of the bus and apparently fell. He feels left-sided weakness. He has injured his knee and his hand in the past and this is what made him fall he believes. He denies any stroke in the past and has had no recent head trauma. The patient states he has not eaten for quite a while. He was drinking alcohol earlier today. Denies other drugs. Transported by EMS. He states that when he fell on his knee he was evaluated at another emergency department. He says there is no fracture there. He is been ambulating with some difficulty but able to get about. No fevers, chills, chest pain, palpitations, nausea, vomiting, diarrhea, dysuria , abdominal pain, shortness of breath, depression, visual changes, headache. Allergies: Coded Allergies: CARVEDILOL (Verified Allergy, Unknown, 03/26/18) Patient History Past Medical History: see triage record Social History: Reports: smoking, alcohol use; Denies: drug use Social History Narrative Pan[place] and usually is on [address] at [address] Reviewed Nursing Documentation: PMH: Agreed; PSxH: Agreed Nursing Documentation-PMH Past Medical History: No History, Except For Hx Cardiac Problems: Yes - stent Hx Hypertension: Yes Hx Diabetes: Yes - DM2 Hx Cancer: No Hx Gastrointestinal Problems: Yes Hx Neurological Problems: No - Chronic Ulcer of right lower leg, bacterial arthritis of left knee, Hx Cerebrovascular Accident: Yes Review of Systems All Other Systems: negative except mentioned in HPI Physical Exam Vital Signs Date Time Temp Pulse Resp B/P (MAP) Pulse Ox O2 Delivery O2 Flow Rate FiO2 11/07/18 03:21 98.4 77 14 115/64 (81) 98 Room Air Sp02 EP Interpretation: reviewed, normal General Appearance: well appearing, no apparent distress, GCS 15, thin Head: normocephalic Eyes: bilateral eye PERRL, bilateral eye EOMI, bilateral eye Scleral Injection ENT: moist mucus membranes - Poor dentition Neck: supple Respiratory: chest non-tender, lungs clear, normal breath sounds Cardiovascular #1: regular rate, rhythm Cardiovascular #2: 2+ radial (R) Gastrointestinal: normal inspection, normal bowel sounds, non tender, no mass, non-distended, scaphoid Musculoskeletal: back normal, digits/nails normal, normal range of motion, swelling - Left knee with stable ligaments wound patella, tender - Left hand Neurologic: alert, oriented x3, job hand III-XII nml as tested, motor strength/tone normal, DTRs symmetric, sensory intact, cerebellar normal, speech normal Psychiatric: mood/affect normal - good range of motion Skin: other - Ulcers knee and hand no erythema minimal swelling Medical Decision Making Homeless Attestation I, The treating physician Dr. Carranza, have assessed and agree that patient is medically stable for discharge to an outpatient disposition. Diagnostic Impression: Primary Impression: Skin ulcer Qualified Codes: L98.491 - Non-pressure chronic ulcer of skin of other sites limited to breakdown of skin Additional Impressions: Cocaine abuse Left knee sprain Qualified Codes: S83.92XD - Sprain of unspecified site of left knee, subsequent encounter ER Course Patient presents with left-sided weakness and a fall. Differential includes cellulitis, abscess, fracture, contusion and stroke. Based on his neurologic exam the patient has not had a stroke. Evaluation with hand and knee x-rays, labs. Treated with Tylenol, Neosporin. Labs remarkable for positive cocaine. X-rays with osteopenia and degenerative joint disease no fractures. Wound care undertaken. An John is applied by the electronic security technician. Tension good and distal neurovascular normal as checked by me. Discussed treatment plan with patient. No medical emergency and the patient is stable for outpatient observation and treatment. Laboratory Tests Test 11/07/18 04:20 11/07/18 05:38 White Blood Count 5.3 K/UL (4.8-10.8) Red Blood Count 3.59 M/UL (4.70-6.10) L Hemoglobin 9.6 G/DL (14.2-18.0) L Hematocrit 31.5 % (42.0-52.0) L Mean Corpuscular Volume 88 FL (80-99) Mean Corpuscular Hemoglobin 26.9 PG (27.0-31.0) L Mean Corpuscular Hemoglobin Concent 30.6 G/DL (32.0-36.0) L Red Cell Distribution Width 15.0 % (11.6-14.8) H Platelet Count 278 K/UL (150-450) Mean Platelet Volume 4.7 FL (6.5-10.1) L Neutrophils (%) (Auto) 60.0 % (45.0-75.0) Lymphocytes (%) (Auto) 25.4 % (20.0-45.0) Monocytes (%) (Auto) 13.5 % (1.0-10.0) H Eosinophils (%) (Auto) 0.4 % (0.0-3.0) Basophils (%) (Auto) 0.7 % (0.0-2.0) Sodium Level 142 MMOL/L (136-145) Potassium Level 4.4 MMOL/L (3.5-5.1) Chloride Level 104 MMOL/L (98-107) Carbon Dioxide Level 28 MMOL/L (21-32) Anion Gap 10 mmol/L (5-15) Blood Urea Nitrogen 14 mg/dL (7-18) Creatinine 1.2 MG/DL (0.55-1.30) Estimate Glomerular Filtration Rate > 60 mL/min (>60) Glucose Level 99 MG/DL (74-106) Calcium Level 9.0 MG/DL (8.5-10.1) Total Bilirubin 0.2 MG/DL (0.2-1.0) Aspartate Amino Transferase (AST) 33 U/L (15-37) Alanine Aminotransferase (ALT) 22 U/L (12-78) Alkaline Phosphatase 160 U/L (46-116) H Total Creatine Kinase 477 U/L (26-308) H Total Protein 8.9 G/DL (6.4-8.2) H Albumin 3.4 G/DL (3.4-5.0) Globulin 5.5 g/dL Albumin/Globulin Ratio 0.6 (1.0-2.7) L Urine Color Yellow Urine Appearance Clear Urine pH 5 (4.5-8.0) Urine Specific [place] 1.030 (1.005-1.035) Urine Protein 2+ (NEGATIVE) H Urine Glucose (UA) Negative (NEGATIVE) Urine Ketones 1+ (NEGATIVE) H Urine Blood 1+ (NEGATIVE) H Urine Nitrite Negative (NEGATIVE) Urine Bilirubin Negative (NEGATIVE) Urine Urobilinogen 1 MG/DL (0.0-1.0) H Urine Leukocyte Esterase 1+ (NEGATIVE) H Urine RBC 0-2 /HPF (0 - 0) H Urine WBC 0-2 /HPF (0 - 0) Urine Squamous Epithelial Cells None /LPF (NONE/OCC) Urine Bacteria Few /HPF (NONE) Urine Opiates Screen Negative (NEGATIVE) Urine Barbiturates Screen Negative (NEGATIVE) Phencyclidine (PCP) Screen Negative (NEGATIVE) Urine Amphetamines Screen Negative (NEGATIVE) Urine Benzodiazepines Screen Negative (NEGATIVE) Urine Cocaine Screen Positive (NEGATIVE) H Urine Marijuana (THC) Screen Negative (NEGATIVE) Other X-Ray Diagnostic Results Other X-Ray Diagnostic Results #1: X-Ray ordered: Hand # of Views/Limited Vs Complete: 3 View Indication: Other EP Interpretation: Yes Interpretation: no dislocation, no soft tissue swelling, no fractures, other - Osteopenia Impression: Other Electronically Signed by: Electronically signed by John Carranza MD Other X-Ray Diagnostic Results #2: X-Ray ordered: Left knee # of Views/Limited Vs Complete: 3 View Indication: Other EP Interpretation: Yes Interpretation: no dislocation, no soft tissue swelling, no fractures, other - deenerative joint disease Impression: Other Electronically Signed by: Electronically signed by John Carranza MD Status: improved Disposition: HOME, SELF-CARE Condition: Improved Scripts Acetaminophen (Tylenol) 325 Mg Tablet 650 MG ORAL Q6H PRN for Prn Pain/Headache/Temp > 101, #20 TAB 0 Refills Prov: John Carranza MD 11/07/18 Bacitracin (Bacitracin) 28.4 Gm Oint...g. 1 APPLIC TOPIC BID, #30 GM Prov: John Carranza MD 11/07/18 John Carranza MD Nov 07, 2018 03:41
[2018-11-07] MEDS ORDERED: Neosporin Oint Ud Pkt TOP ONE (03:45)
[2018-11-07] MEDS ORDERED: Acetaminophen 500mg (ES) tab PO ONE (03:45)
[2018-11-07 04:49] LABS: BASOPHILS % (AUTO) 0.7 % (0.0-2.0); EOSINOPHILS % (AUTO) 0.4 % (0.0-3.0); HEMATOCRIT 31.5 % (42.0-52.0); HEMOGLOBIN 9.6 G/DL (14.2-18.0); LYMPHOCYTES % (AUTO) 25.4 % (20.0-45.0); MEAN CORPUSCULAR VOLUME 88 FL (80-99); MONOCYTES % (AUTO) 13.5 % (1.0-10.0); PLATELET COUNT 278 K/UL (150-450); RED BLOOD COUNT 3.59 M/UL (4.70-6.10); WHITE BLOOD COUNT 5.3 K/UL (4.8-10.8)
[2018-11-07 04:57] LABS: ANION GAP 10 mmol/L (5-15); BLOOD UREA NITROGEN 14 mg/dL (7-18); CARBON DIOXIDE 28 MMOL/L (21-32); CHLORIDE 104 MMOL/L (98-107); CREATININE 1.2 MG/DL (0.55-1.30); POTASSIUM 4.4 MMOL/L (3.5-5.1); SODIUM 142 MMOL/L (136-145)
[2018-11-07 05:01] LABS: ALANINE AMINOTRANSFERASE 22 U/L (12-78); ALBUMIN 3.4 G/DL (3.4-5.0); ALBUMIN/GLOBULIN RATIO 0.6 (1.0-2.7); ALKALINE PHOSPHATASE 160 U/L (46-116); ASPARTATE AMINO TRANSFERASE 33 U/L (15-37); BILIRUBIN,TOTAL 0.2 MG/DL (0.2-1.0); CREATINE KINASE 477 U/L (26-308)
--- NOTE | 2018-11-07 05:41 | Diagnostic Imaging Report ---
EXAM: XR Left Hand Complete, 3 or More Views. CLINICAL HISTORY: TRAUMA TECHNIQUE: Frontal, lateral and oblique views of the left hand. Exam mildly limited by positioning and partial flexion. COMPARISON: No relevant prior studies available. FINDINGS: Bones: There is no evidence of acute fracture. Diffuse osteoporosis/osteopenia. Joints: No dislocation. Joint spaces are preserved. Mild hyperflexion at the fifth PIP may be associated with tendon injury. Soft tissues: Unremarkable. No radiopaque foreign body. IMPRESSION: No evidence of acute fracture or dislocation. Osteoporosis/osteopenia.
[2018-11-07 05:46] LABS: APPEARANCE,URINE CLEAR; BILIRUBIN, URINE NEGATIVE (NEGATIVE); GLUCOSE, URINE (UA) NEGATIVE (NEGATIVE); KETONES,URINE 1+ (NEGATIVE); LEUKOCYTE ESTERASE ,URINE 1+ (NEGATIVE); NITRITE,URINE NEGATIVE (NEGATIVE); PH,URINE 5 (4.5-8.0); PROTEIN,URINE 2+ (NEGATIVE); UROBILINOGEN,URINE 1 MG/DL (0.0-1.0)
--- NOTE | 2018-11-07 06:01 | Diagnostic Imaging Report ---
EXAM: XR Left Knee, 3 views. CLINICAL HISTORY: PAIN TECHNIQUE: Three views of the left knee. COMPARISON: No relevant prior studies available. FINDINGS: Bones: No evidence of acute fracture. Osteoporosis/osteopenia. Joints: No dislocation. No suprapatellar effusion. Mild tricompartmental degenerative changes of the left knee. Soft tissues: Unremarkable. IMPRESSION: No evidence of acute fracture or dislocation. Mild degenerative changes.
[2018-11-07 06:02] LABS: COLOR,URINE YELLOW
[2018-11-07] MEDS ORDERED: BACITRACIN15 GM TOPIC (06:47)
[2018-11-07] MEDS ORDERED: TYLENOL325 MG ORAL (06:47)
[2018-11-07 07:25] VITALS: BP 115/64
--- NOTE | 2018-11-07 07:27 | NUR ---
ER DISCHARGE NOTE: Patient is cleared to be discharged per ERMD, pt is aox4, on room air, with stable vital signs. pt was given dc and prescription instructions, pt was able to verbalize understanding, pt id band and iv site removed without complications. pt is able to ambulate with steady gait. pt took all belongings.
== END 2018-11-07 07:27 | disposition home or self-care (01) ==
LOC: EDBD 03:25 → EMR 03:58
DX: L98.491 Non-pressure chronic ulcer of skin of other sites limited to breakdown of skin (principal); F14.10 Cocaine abuse, uncomplicated; S83.92XD Sprain of unspecified site of left knee, subsequent encounter; W19.XXXD Unspecified fall, subsequent encounter; Z88.8 Allergy status to other drugs, medicaments and biological substances; Z95.5 Presence of coronary angioplasty implant and graft; Z86.73 Personal history of transient ischemic attack (TIA), and cerebral infarction without residual deficits; E11.9 Type 2 diabetes mellitus without complications; I10 Essential (primary) hypertension; F17.200 Nicotine dependence, unspecified, uncomplicated; M85.862 Other specified disorders of bone density and structure, left lower leg; M85.842 Other specified disorders of bone density and structure, left hand
CPT/HCPCS: 36415; 80053; 80307; 81001; 82550; 85025; 99282; 99284

== ENCOUNTER 2018-11-07 11:50 | Emergency (ER) | payer MEDICARE, MEDICAID ==
[~2018-11-07] VITALS: Ht 185.4 cm; Wt 75.3 kg
[~2018-11-07 11:50] MED LIST changes: +BACITRACIN15 GM TOPIC; +TYLENOL325 MG ORAL
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
--- NOTE | 2018-11-07 12:51 | Emergency Room Report ---
History of Present Illness General Chief Complaint: Lower Extremity Injury Source: Patient Present Illness HPI Patient reports that he was having discomfort to the right ankle Patient was found laying in the street and brought to the emergency room patient was seen recently for complaints of left side discomfort Denies any fevers or chills denies any recent trauma since discharge Patient reports that he is homeless denies any Vomiting denies any abdominal pain Allergies: Coded Allergies: CARVEDILOL (Verified Allergy, Unknown, 03/26/18) Patient History Past Medical History: see triage record Pertinent Family History: none Reviewed Nursing Documentation: PMH: Agreed; PSxH: Agreed Nursing Documentation-PMH Past Medical History: No History, Except For Hx Cardiac Problems: Yes - stent Hx Hypertension: Yes Hx Diabetes: Yes - DM2 Hx Cancer: No Hx Gastrointestinal Problems: Yes Hx Neurological Problems: No - Chronic Ulcer of right lower leg, bacterial arthritis of left knee, Hx Cerebrovascular Accident: Yes Review of Systems All Other Systems: negative except mentioned in HPI Physical Exam Vital Signs Date Time Temp Pulse Resp B/P (MAP) Pulse Ox O2 Delivery O2 Flow Rate FiO2 11/07/18 11:44 98.2 82 16 104/64 (77) 98 Room Air Sp02 EP Interpretation: reviewed, normal General Appearance: no apparent distress Head: normocephalic, atraumatic Eyes: bilateral eye PERRL, bilateral eye EOMI ENT: hearing grossly normal, normal pharynx Neck: supple Respiratory: lungs clear, no rhonchi Cardiovascular #1: regular rate, rhythm Gastrointestinal: normal bowel sounds, non tender, soft Musculoskeletal: other - Skin abrasion to the right ankle laterally, no obvious erythema or fluctuance neurovascular intact Neurologic: alert, oriented x3 Skin: other - As above Lymphatic: no adenopathy Medical Decision Making Last Vital Signs Date Time Temp Pulse Resp B/P (MAP) Pulse Ox O2 Delivery O2 Flow Rate FiO2 11/07/18 11:44 98.2 82 16 104/64 (77) 98 Room Air Referrals: [facility] (PCP) Maxi Otero DO Nov 07, 2018 12:51
--- NOTE | 2018-11-07 13:57 | NUR ---
ED Nurse Note: REPORT GIVEN TO NEDRA CHARGE NURSE AT [facility] ED. [facility] IS HERE TO PICK PATIENT UP.
[2018-11-07 14:10] VITALS: BP 104/64
--- NOTE | 2018-11-07 14:10 | NUR ---
ED Nurse Note: Patient is being transferred to [facility] via ambulance with all of his belongings, in stable condition
== END 2018-11-07 14:17 | disposition home or self-care (01) ==
LOC: EDBD 11:50 → EMR 12:29
DX: M25.571 Pain in right ankle and joints of right foot (principal); S90.511A Abrasion, right ankle, initial encounter; Z88.8 Allergy status to other drugs, medicaments and biological substances; Z59.0 Homelessness; Z95.5 Presence of coronary angioplasty implant and graft; E11.9 Type 2 diabetes mellitus without complications; I10 Essential (primary) hypertension; Z86.73 Personal history of transient ischemic attack (TIA), and cerebral infarction without residual deficits; X58.XXXA Exposure to other specified factors, initial encounter; Y92.9 Unspecified place or not applicable
CPT/HCPCS: 99282